=== PATIENT | male | born 1975 | race Caucasian/White ===

== ENCOUNTER 2021-12-27 13:34 | Emergency (ER) | payer BC, SELFPAY ==
[2021-12-27 13:36] VITALS: BP 150/99; PULSE 104; RESP 16; TEMP 36.9; O2SAT 97; BMI 31.8
--- NOTE | 2021-12-27 13:38 | HMH.EDUROGM ---
Discharge Plan Disposition Patient Disposition: Home, Self-Care Condition: Good Prescriptions Prescriptions: New levofloxacin 750 mg tablet 750 mg PO ONCE 10 Days Qty: 10 0RF Referrals Follow up/Referrals: Sotero Fitzpatrick MD [Staff Physician] - See instructions Activity Restrictions/Add. Instructions Additional Instructions/Restrictions: Use tylenol/ibuprofen as needed for discomfort and when sitting you may elevate the scrotum to relieve pain. Take antibiotics as prescribed and follow up with urology for further evaluation if issue is persistent. For any significant worsening, return to the ED for re-evaluation Clinical Impressions Clinical Impression: Epididymitis, left, Orchitis Instructions Patient Instructions: DI for Epididymitis, Levofloxacin, DI for Orchitis Print Language Print Language: Maltese Discharge ED Provider: Scar Ramirez Male Urogenital HPI General Chief complaint: PAIN Stated complaint: pain in L testicle Time Seen by Provider: 12/27/21 13:38 Mode of Arrival: Ambulatory Source of Information: Patient Limitations: No Limitations History of Present Illness HPI Narrative: This is a 46-year-old male, no significant past medical history who presents with chief complaint of pain in the left testicle for 2 days now, denies any known trauma or other injury. He denies any associated dysuria, discharge, inguinal lymphadenopathy. He has been taking ibuprofen without significant relief. He does report redness and mild swelling in the left testicle. Denies dysuria, fever, chills, nausea, vomiting or any other symptoms at this time Related Data Sexually active: Yes Previous Rx's Medication Instructions Recorded levofloxacin 750 mg tablet 750 mg PO ONCE 10 days #10 tabs 12/27/21 Allergies Allergy/AdvReac Type Severity Reaction Status Date / Time No Known Allergies Allergy Verified 12/27/21 14:14 [facility] Social History Smoking Status: Never smoker alcohol intake: never current occupational status: employed Travel in the last 8 weeks: None ROS Obtained: Yes Systems reviewed as appropriate & no additional complaints except as documented Constitutional Constitutional: Reports system reviewed and no additional complaints, except as documented Eyes Eyes: Reports system reviewed and no additional complaints, except as documented ENT Ears, Nose, Mouth, and Throat: Reports system reviewed and no additional complaints, except as documented Cardiovascular Cardiovascular: Reports system reviewed and no additional complaints, except as documented Respiratory Respiratory: Reports system reviewed and no additional complaints, except as documented Gastrointestinal Gastrointestingal: Reports system reviewed and no additional complaints, except as documented Genitourinary Male Genitourinary: Reports testicular pain Musculoskeletal Musculoskeletal: Reports system reviewed and no additional complaints, except as documented Integumentary/Breasts Skin/Breast: Reports system reviewed and no additional complaints, except as documented Neurologic Neurologic: Reports system reviewed and no additional complaints, except as documented Physical Exam General General appearance: alert and in no apparent distress Head Head exam: atraumatic, normocephalic and normal inspection Eye Eye exam: Present normal appearance, PERRL and EOMI ENT ENT exam: Present normal exam, normal oropharynx, mucous membranes moist, TM's normal bilaterally and normal external ear exam Neck Neck exam: Present normal inspection, full ROM and trachea midline; Absent meningismus or lymphadenopathy Chest Chest inspection: Present normal inspection and symmetric chest wall rise; Absent tenderness Respiratory Respiratory exam: Present normal lung sounds bilaterally; Absent respiratory distress Cardiovascular Cardiovascular exam: Present regular rate and normal rhythm; Absent
[2021-12-27 14:04] LABS: Microscopic, Urine URINE MICROSCOPIC (MICROSCOPIC)
[2021-12-27 14:13] LABS: Appearance,Urine CLEAR (Clear); Blood, Urine Negative (Negative); Glucose,Urine (UA) Negative (Negative); Ketones,Urine Negative (Negative); Leukocyte Esterase,Urine Negative (Negative); Nitrate,Urine Negative (Negative); Protein,Urine Negative (Negative); Specific Gravity, Urine 1.025 (1.005-1.030)
[2021-12-27 14:26] LABS: Bilirubin,Urine 1+ (Negative); Color,Urine Amber (Yellow)
[2021-12-27 14:28] LABS: Bacteria,Urine 2+ /lpf; Squamous Epithelial Cell,Urine Occasional #/hpf (0-5)
[2021-12-27 14:29] LABS: Mucus,Urine 4+ /lpf; RBC,Urine Occasional #/hpf (0-3)
[2021-12-27 14:30] VITALS: BP 148/89; PULSE 100; RESP 18; TEMP 36.9; O2SAT 98
== END 2021-12-27 14:30 | disposition home or self-care (01) ==
PROVIDERS: Emergency Provider Emergency Medicine
DX: N45.1 Epididymitis (principal); N45.2 Orchitis; B97.89 Other viral agents as the cause of diseases classified elsewhere
CPT/HCPCS: 81001; 87086; 96372; 99283; J0696

== ENCOUNTER 2023-12-02 10:58 | Outpatient (CLI) | payer BC, SELFPAY ==
[2023-12-02 19:27] LABS: Basophils # 0.1 K/mm3 (0-0.2); Basophils % 0.6 % (0.1-2.0); Eosinophils # 0.1 K/mm3 (0.0-0.4); Hematocrit 50.1 % (42.0-52.0); Hemoglobin 15.9 g/dL (14.1-18.0); Lymphocytes # 2.4 K/mm3 (0.7-4.5); Lymphocytes % 21.1 % (10-50); Mean Corpuscular HGB Conc 31.7 g/dL (31.8-35.4); Mean Corpuscular Hemoglobin 30.3 pg (27.0-31.2); Mean Corpuscular Volume 95.5 fl (80-94); Mean Platelet Volume 10.4 fl (7.4-10.4); Monocytes # 0.5 K/mm3 (0.1-1.0); Monocytes % 4.3 % (1.7-9.3); Neutrophils # 8.4 K/mm3 (1.8-7.8); Platelet Count 183 K/mm3 (142-424); Red Blood Count 5.25 M/mm3 (4.60-6.20); Red Cell Distribution Width 13.3 % (11.5-17.5); White Blood Count 11.5 K/mm3 (4.8-10.8)
[2023-12-02 20:05] LABS: Alanine Aminotransferase 37 U/L (12-78); Albumin Level 4.1 g/dl (3.5-5.0); Albumin/Globulin Ratio 1.2 (1.1-1.8); Alkaline Phosphatase 76 U/L (38-126); Anion Gap 11.3 mEq/L (5-15); Aspartate Amino Transferase 37 U/L (17-59); Bilirubin,Total 0.5 mg/dl (0.2-1.3); Blood Urea Nitrogen 14 mg/dl (9-20); Calcium 9.3 mg/dl (8.4-10.2); Carbon Dioxide 23 mmol/L (22.0-30.0); Chloride 109 mmol/L (98-107); Chol/HDL Ratio 10.3 (1-3.5); Cholesterol 238 mg/dl (140-200); Estimated Glomerular Filt Rate 80 ml/min (>60); GFR (African American) 97 ML/MIN (>60); Globulin 3.4 g/dL (1.3-3.2); Glucose 95 mg/dl (74-100); HDL Cholesterol 23 mg/dl (40-60); Potassium 4.3 mmoL/L (3.5-5.1); Sodium 139 mmol/L (136-145); Total Protein,Serum 7.5 g/dl (6.3-8.2); Triglycerides 209 mg/dl (30-150); VLDL Cholesterol 42 mg/dL (0-40)
[2023-12-02 20:16] LABS: Direct LDL Cholesterol 158.69 mg/dL (100-129)
[2023-12-02 20:25] LABS: 25-OH Vitamin D, Total 26.1 ng/mL (30-100)
[2023-12-02 20:36] LABS: Prostate Specific Ag Screen 0.6 ng/ml (0.0-4.0)
[2023-12-02 20:40] LABS: Hemoglobin A1C 5.4 % (4.0-6.0)
[2023-12-03 11:47] LABS: HIV (1&2) Antibody Rapid NONREACTIVE (NONREACTIVE)
[2023-12-06 20:08] LABS: HCV Ab Reactive (Non Reactive)
== END 2023-12-02 23:59 | disposition home or self-care (01) ==
LOC: LAB.DROPOF 12-03 10:59
PROVIDERS: PCP Family Medicine; Visit Provider Family Medicine
DX: I10 Essential (primary) hypertension (principal); Z11.59 Encounter for screening for other viral diseases; Z91.89 Other specified personal risk factors, not elsewhere classified; M54.50 Low back pain, unspecified; K21.9 Gastro-esophageal reflux disease without esophagitis; Z82.49 Family history of ischemic heart disease and other diseases of the circulatory system
CPT/HCPCS: 80050; 80053; 80061; 82306; 83036; 84443; 85025; G0103

== ENCOUNTER 2023-12-09 10:57 | Outpatient (CLI) | payer BC, SELFPAY ==
--- NOTE | 2023-12-09 11:01 | XR_ITS ---
FINAL REPORT CLINICAL HISTORY: Rt Humerus Pain FINDINGS: Right humerus Four views were obtained. There is no acute fracture or dislocation. There are mild degenerative changes of the shoulders. No soft tissue abnormality is identified. IMPRESSION: No acute process. Reviewed, Interpreted and Dictated by Enoc Torres III, MD Transcribed by Danette Polanco Authenticated and [facility]
== END 2023-12-09 23:59 | disposition home or self-care (01) ==
LOC: RAD 10:58
PROVIDERS: PCP Family Medicine; Visit Provider Orthopaedic Surgery
DX: M79.601 Pain in right arm (principal); S46.211A Strain of muscle, fascia and tendon of other parts of biceps, right arm, initial encounter
CPT/HCPCS: 73060

== ENCOUNTER 2023-12-14 09:44 | Outpatient (CLI) | payer BC, SELFPAY ==
[2023-12-14 10:11] LABS: Basophils # 0.1 K/mm3 (0-0.2); Basophils % 0.7 % (0.1-2.0); Eosinophils # 0.2 K/mm3 (0.0-0.4); Hematocrit 48.2 % (42.0-52.0); Lymphocytes # 2.2 K/mm3 (0.7-4.5); Lymphocytes % 21.9 % (10-50); Mean Corpuscular HGB Conc 31.2 g/dL (31.8-35.4); Mean Corpuscular Hemoglobin 29.8 pg (27.0-31.2); Mean Corpuscular Volume 95.4 fl (80-94); Mean Platelet Volume 8.3 fl (7.4-10.4); Monocytes # 0.5 K/mm3 (0.1-1.0); Monocytes % 4.6 % (1.7-9.3); Neutrophils % 70.7 % (37.0-80.0); Platelet Count 176 K/mm3 (142-424); Red Blood Count 5.05 M/mm3 (4.60-6.20); Red Cell Distribution Width 13.4 % (11.5-17.5); White Blood Count 9.9 K/mm3 (4.8-10.8)
[2023-12-14 11:02] LABS: INR 0.93 (0.9-1.1); Prothrombin Time 10.5 seconds (10.1-12.5)
[2023-12-14 11:08] LABS: Alanine Aminotransferase 37 U/L (12-78); Albumin Level 3.7 g/dl (3.5-5.0); Albumin/Globulin Ratio 1.2 (1.1-1.8); Alkaline Phosphatase 65 U/L (38-126); Anion Gap 5.6 mEq/L (5-15); Aspartate Amino Transferase 37 U/L (17-59); Bilirubin,Total 0.5 mg/dl (0.2-1.3); Blood Urea Nitrogen 13 mg/dl (9-20); Calcium 9.3 mg/dl (8.4-10.2); Carbon Dioxide 25 mmol/L (22.0-30.0); Chloride 112 mmol/L (98-107); Estimated Glomerular Filt Rate 80 ml/min (>60); GFR (African American) 97 ML/MIN (>60); Globulin 3.2 g/dL (1.3-3.2); Glucose 79 mg/dl (74-100); Potassium 4.6 mmoL/L (3.5-5.1); Sodium 138 mmol/L (136-145); Total Protein,Serum 6.9 g/dl (6.3-8.2)
[2023-12-14 14:40] LABS: HIV (1&2) Antibody Rapid NONREACTIVE (NONREACTIVE)
[2023-12-15 10:13] LABS: Hep A Ab, Total Positive (Negative); Hep B Core Ab, Total Positive (Negative); Hep B Surface Ab, Qual Reactive (.); Hepatitis B Surface Antigen Negative (Negative)
[2023-12-16 23:08] LABS: HCV Genotype Charge YES; HCV RNA (International Units) 11800000 IU/mL (.); Hepatitis C Genotype 2b (.)
[2023-12-22 09:53] LABS: Fibrosis Score 0.24; Fibrosis Stage F0-F1; Hepatitis C Antibody REACTIVE
[2023-12-22 09:54] LABS: Alpha 2-Macroglobulins, Qn 311 mg/dL; Haptoglobin 156 mg/dL; Necroinflammat Activity Score 0.15
[2023-12-22 09:55] LABS: ALT (SGPT) P5P 33 IU/L; Apolipoprotein A-1 93 mg/dL; Bilirubin, Total 0.1 mg/dL; GGT 28 IU/L
== END 2023-12-14 23:59 | disposition home or self-care (01) ==
LOC: LAB 09:45
PROVIDERS: PCP Nurse Practitioner Family; Visit Provider Nurse Practitioner Family
DX: B19.20 Unspecified viral hepatitis C without hepatic coma (principal)
CPT/HCPCS: 36415; 80053; 81596; 85025; 85610; 86704; 86706; 86708; 87340; 87380; 87522; 87902

== ENCOUNTER 2024-02-14 16:10 | Outpatient (CLI) | payer BC, SELFPAY ==
--- NOTE | 2024-02-14 16:11 | MR_ITS ---
PROCEDURE INFORMATION: Exam: MR Cervical Spine Without Contrast Exam date and time: 02/14/2024 4:18 PM Age: 48 years old Clinical indication: Neck pain; Additional info: Cervical radiculopathy TECHNIQUE: Imaging protocol: Magnetic resonance imaging of the cervical spine without contrast. COMPARISON: CR XR HUMERUS RT 12/09/2023 11:11 AM FINDINGS: Bones/joints: The vertebral body heights and alignment are maintained. There is [id number] multilevel degenerative disc disease. Spinal cord: Normal signal. No cord compression. C2-C3: No significant disc bulge or herniation. No severe spinal canal stenosis. No significant neural foraminal narrowing. C3-C4: There is mild diffuse disc osteophyte bulging which partially effaces the anterior thecal sac. There is no significant spinal canal stenosis. The right neural foramen appears patent. There is [id number] left neural foraminal stenosis secondary to foraminal disc osteophyte ridging and facet hypertrophy. C4-C5: There is mild diffuse disc osteophyte bulging which partially effaces the anterior thecal sac. There is no significant spinal canal stenosis. The right neural foramen appears patent. There is moderate left neural foraminal stenosis secondary to foraminal disc osteophyte bulging and facet hypertrophy. C5-C6: There is mild spinal canal stenosis secondary to diffuse disc osteophyte bulging which effaces the anterior thecal sac. The left neural foramen appears patent. There is [id number] right neural foraminal stenosis secondary to a foraminal disc osteophyte complex and facet hypertrophy. C6-C7: There is diffuse disc osteophyte bulging which partially effaces the anterior thecal sac. There is no significant spinal canal stenosis. The left neural foramen appears patent. There is severe right neural foraminal stenosis secondary to a foraminal disc osteophyte complex. C7-T1: No significant disc bulge or herniation. No severe spinal canal stenosis. No significant neural foraminal narrowing. Soft tissues: Unremarkable. Vasculature: Expected flow voids in the vertebral arteries. IMPRESSION: Degenerative changes as described. Please see above for specific findings at each level.
== END 2024-02-14 23:59 | disposition home or self-care (01) ==
LOC: RAD 16:11
PROVIDERS: PCP Nurse Practitioner Family; Visit Provider Physician Assistant
DX: M47.22 Other spondylosis with radiculopathy, cervical region (principal)
CPT/HCPCS: 72141

== ENCOUNTER 2024-03-03 15:12 | Outpatient (CLI) | payer BC, SELFPAY ==
--- NOTE | 2024-03-03 15:13 | MR_ITS ---
PROCEDURE INFORMATION: Exam: MR Right Upper Extremity Joint Without Contrast; Shoulder Exam date and time: 03/03/2024 3:17 PM Age: 48 years old Clinical indication: Pain; Shoulder; Right; Additional info: Attention to musculocutaneous TECHNIQUE: Imaging protocol: Magnetic resonance imaging of the right upper extremity without contrast. Exam focused on the shoulder. COMPARISON: CR XR HUMERUS RT 12/09/2023 11:11 AM FINDINGS: Bones/joints: There is limited subchondral cystic change humeral head superiorly and laterally without fracture or suspicious marrow signal. Mild osteoarthritis acromioclavicular joint. Minimal reactive marrow edema on either side of the articulation. Good preservation of articular cartilage glenohumeral joint. Glenoid labrum: Unremarkable. No evidence of tear. Supraspinatus tendon: Minimal tendinopathy distal supraspinatus tendon. The rotator cuff is intact. Infraspinatus tendon: Unremarkable. No evidence of tear. Subscapularis tendon: Unremarkable. No evidence of tear. Teres minor tendon: Unremarkable. No evidence of tear. Tendon of biceps brachii: Unremarkable. No evidence of tear. Glenohumeral ligaments: Unremarkable. Soft tissues: Unremarkable. Other findings: Otherwise unremarkable. IMPRESSION: 1. There is limited degenerative subchondral cystic change humeral head superiorly and laterally without fracture or suspicious marrow signal. 2. Minimal tendinopathy distal supraspinatus tendon. The rotator cuff is intact. 3. Mild osteoarthritis acromioclavicular joint. Minimal reactive marrow edema on either side of the articulation. 4. Otherwise unremarkable.
--- NOTE | 2024-03-03 15:13 | MR_ITS ---
PROCEDURE INFORMATION: Exam: MR Right Upper Extremity Other Than Joint Without Contrast, Humerus. Exam date and time: 03/03/2024 3:55 PM Age: 48 years old Clinical indication: Pain; Additional info: Parathesis of upper right extremity TECHNIQUE: Imaging protocol: Magnetic resonance imaging of the right upper extremity other than joint without contrast. Exam focused on the humerus. COMPARISON: CR XR HUMERUS RT 12/09/2023 11:11 AM FINDINGS: Bones/joints: Detailed intra-articular structures shoulder and elbow are limited by the large field of view utilized for whole upper arm study. There is additional limitation by motion artifact on several sequences. Mild osteoarthritis glenohumeral joint. No suly rotator cuff tear. Detail of the labrum is quite limited. Soft tissues: There is mild edematous signal change in the muscle belly of the biceps brachii in the upper arm. There is some thickened irregular appearance to the musculotendinous junction, without significant edema along the remaining course of the tendon. The distal most insertion is not well visualized. This would be better visualized on the dedicated MRI of the elbow. Findings may represent a remote injury to the distal biceps tendon. IMPRESSION: 1. There is mild edematous signal change in the muscle belly of the biceps brachii in the upper arm. There is some thickened irregular appearance to the musculotendinous junction at this level, without significant edema along the remaining course of the tendon. The distal most insertion is not well visualized. This would be better visualized on the dedicated MRI of the elbow. Findings may represent a remote injury to the distal biceps tendon. 2. Mild osteoarthritis glenohumeral joint. No suly rotator cuff tear. Detail of the labrum is quite limited.
== END 2024-03-03 23:59 | disposition home or self-care (01) ==
LOC: RAD 15:13
PROVIDERS: PCP Nurse Practitioner Family; Visit Provider Physician Assistant
DX: R20.2 Paresthesia of skin (principal); G56.91 Unspecified mononeuropathy of right upper limb
CPT/HCPCS: 73218; 73221

== ENCOUNTER 2024-05-05 10:51 | Emergency (ER) | payer OTHER, SELFPAY ==
--- NOTE | 2024-05-05 11:06 | ED_ITS ---
Discharge Plan Disposition Patient Disposition: Home, Self-Care Condition: Good Prescriptions Prescriptions: New sulfamethoxazole-trimethoprim [Bactrim DS] 800-160 mg Tablet 1 tab PO BID 10 Days Qty: 20 0RF cephalexin 500 mg capsule 500 mg PO QID 10 Days Qty: 40 0RF mupirocin 2 % ointment 1 applic topical TID 7 Days Qty: 15 0RF No Action cetirizine [Wal-Zyr (cetirizine)] 10 mg tablet 10 mg PO DAILY PRN (Reason: allergy symptoms) Qty: 30 3RF omeprazole 40 mg capsule,delayed release(DR/EC) 40 mg PO DAILY Qty: 30 2RF atorvastatin [Lipitor] 10 mg tablet 10 mg PO HS Qty: 30 2RF Referrals Follow up/Referrals: Khanh Zimmer APRN [Primary Care Provider] - See instructions Activity Restrictions/Add. Instructions Additional Instructions/Restrictions: Keep the affected area clean and dry. Follow up with your regular doctor. Take the antibiotics as directed and apply the topical antibiotics as directed. Apply warm wet compresses to the affected area three or four times per day. GO TO THE ER FOR ANY WORSENING SYMPTOMS We are culturing the drainage from your wound. That will tell what bacteria is causing your infection and which antibiotics will treat it best.This test takes 3 days to complete. Please make sure you follow up to go over the culture report and to have the wound rechecked. Clinical Impressions Clinical Impression: Cutaneous abscess of left hand, Cellulitis of left hand Instructions Patient Instructions: Cellulitis, DI for Skin Abscess Print Language Print Language: Mongolian Discharge ED Provider: Billy Pedraza [facility] General Stated complaint: infection on L hand Time Seen by Provider: 05/05/24 11:06 History of Present Illness Provider Complaint: He states that for the past 1 week he has had a worsening red swollen area on the back of his left hand. He states that the area has redness surrounding it and the wound has had tannish drainage. He denies any fever/chills/malaise. He denies that he is a diabetic. Related Data Previous Rx's ?Medication ?Instructions ?Recorded cetirizine 10 mg tablet (Wal-Zyr 10 mg PO DAILY PRN allergy 12/14/23 (cetirizine)) symptoms #30 tabs omeprazole 40 mg capsule,delayed 40 mg PO DAILY #30 caps 03/15/24 release atorvastatin 10 mg tablet (Lipitor) 10 mg PO HS #30 tabs 03/27/24 cephalexin 500 mg capsule 500 mg PO QID 10 days #40 caps 05/05/24 mupirocin 2 % topical ointment 1 applic topical TID 7 days #15 05/05/24 grams sulfamethoxazole 800 1 tab PO BID 10 days #20 tabs 05/05/24 mg-trimethoprim 160 mg tablet (Bactrim DS) Allergies Allergy/AdvReac Type Severity Reaction Status Date / Time No Known Allergies Allergy Verified 02/22/24 11:08 [facility] Disclaimer: The information contained in this section may have been updated after the patient was seen, as this information can be updated by other users. Medical History High cholesterol Hepatitis C Hip pain, bilateral Lower back pain High blood pressure Surgical History No history of previous surgery Family History Father Hypertension Alcoholism Heart attack Mother Hypertension Heart attack COPD (chronic obstructive pulmonary disease) Obesity Social History Smoking Status: Heavy tobacco smoker alcohol intake: current current occupational status: unemployed Travel in the last 8 weeks: None marital status: single number of children: 4 Have you lived/traveled outside US in past 30 days?: No Contact w/someone who lives/traveled outside US past 30 days?: No Exposure to someone with infectious disease in past 14 days?: No Do you have a fever (greater than 100.4 F or 38 C)?: No Have you tested positive for COVID-19: No Exposed to someone with COVID-19 in past 14 days?: No Do you have a sore throat?: No Do you have a cough?: No Do you have any weakness?: No Do you have any diarrhea?: No Are you experiencing any unusual bleeding?: No Do you have any muscle aches/pain?: No Do you have any abdominal pain?: No Are you experiencing loss of taste or smell?: No ROS Obtained: Yes All systems reviewed & no additional complaints except as documented Constitutional Constitutional: Denies chills and Denies fever(s) Eyes Eyes: Denies eye discharge ENT Ears, Nose, Mouth, and Throat: Denies dizziness, Denies otalgia and Denies sore throat Cardiovascular Cardiovascular: Denies chest pain Respiratory Respiratory: Denies shortness of breath, Denies chest congestion, Denies cough, Denies stridor and Denies wheezing Gastrointestinal Gastrointestingal: Denies nausea or vomiting Musculoskeletal Musculoskeletal: Reports system reviewed and no additional complaints, except as documented and Denies arthralgias Integumentary/Breasts Skin/Breast: Reports as per HPI, Reports redness and Reports wounds Neurologic Neurologic: Denies dizziness and Denies paresthesias Allergic/Immunologic Allergic/Immunologic: Denies wheezing Physical Exam General General appearance: alert and in no apparent distress Head Head exam: atraumatic, normocephalic and normal inspection Eye Eye exam: Present normal appearance, PERRL and EOMI ENT ENT exam: Present normal exam, normal oropharynx, mucous membranes moist, TM's normal bilaterally and normal external ear exam Neck Neck exam: Present normal inspection, full ROM and trachea midline; Absent meningismus or lymphadenopathy Chest Chest inspection: Present normal inspection and symmetric chest wall rise; Absent tenderness Respiratory Respiratory exam: Present normal lung sounds bilaterally; Absent respiratory distress Cardiovascular Cardiovascular exam: Present regular rate and normal rhythm; Absent JVD Abdominal Exam Abdominal exam: Present soft and normal bowel sounds; Absent distention, tenderness or guarding Extremities Exam Extremities exam: Present normal inspection, full ROM and normal capillary refill; Absent calf tenderness Back Exam Back exam: Present normal inspection; Absent tenderness Neurological Exam Neurological exam: Present alert and oriented X3 Psychiatric Psychiatric exam: Present normal affect and normal mood Skin Skin exam: Present erythema (there is an area of erythema on the dorsal surface of his left hand that measures 3 cm diameter. there is an open area in its center that has a small amount of tannish drainage. ) Lymphatic Lymphatic Findings: no adenopathy Medical Decision Making Medical Records Medical records reviewed: No I reviewed the patient's medical records. Screening: Per USPSTF and CDC recommendations, given the prevalence of disease in our [place] on, it is our hospital?s policy to screen for HIV and viral Hepatitis for all patients aged 18 and over and those with ongoing risk factors. Jomar Inquiry Pt receiving controlled substance: No
[2024-05-05 11:10] VITALS: BP 157/88; PULSE 69; RESP 18; TEMP 36.9; O2SAT 95; BMI 31.1
[2024-05-05] MEDS: LIDOCAINE 1% 5ML PF VIAL IM (11:26)
[2024-05-05] MEDS: cefTRIAXone 1GM VIAL 1 GM IM (11:26)
[2024-05-05 11:29] VITALS: BP 157/88; PULSE 69; RESP 18; TEMP 36.9; O2SAT 95
--- NOTE | 2024-05-07 18:54 | PC.NURSE ---
UNABLE TO REACH PT ABOUT CULTURE.
--- NOTE | 2024-05-08 10:09 | PC.NURSE ---
Pt called about wound culture, pt was advised that the antibiotics given will cover the infection he has and was told to follow up with pcp for worsening symptoms.
== END 2024-05-05 11:37 | disposition home or self-care (01) ==
PROVIDERS: Emergency Provider Nurse Practitioner Family; PCP Nurse Practitioner Family
DX: L03.114 Cellulitis of left upper limb (principal); L02.512 Cutaneous abscess of left hand
CPT/HCPCS: 87070; 87077; 87186; 87205; 99213; G0381; J0696

== ENCOUNTER 2024-06-12 13:56 | Outpatient (CLI) | payer OTHER, SELFPAY ==
[2024-06-12 19:26] LABS: Chloride 104 mmol/L (98-107); Potassium 4.6 mmoL/L (3.5-5.1); Sodium 139 mmol/L (136-145)
[2024-06-12 19:29] LABS: Alanine Aminotransferase 22 U/L (12-78); Albumin/Globulin Ratio 1.4 (1.1-1.8); Alkaline Phosphatase 106 U/L (38-126); Anion Gap 14.6 mEq/L (5-15); Aspartate Amino Transferase 29 U/L (17-59); Bilirubin,Total 0.7 mg/dl (0.2-1.3); Calcium 9.8 mg/dl (8.4-10.2); Carbon Dioxide 25 mmol/L (22.0-30.0); Cholesterol 218 mg/dl (140-200); Globulin 3.6 g/dL (1.3-3.2); Glucose 86 mg/dl (74-100); Total Protein,Serum 8.6 g/dl (6.3-8.2); Triglycerides 203 mg/dl (30-150); VLDL Cholesterol 41 mg/dL (0-40)
[2024-06-12 19:30] LABS: Chol/HDL Ratio 8.7 (1-3.5); HDL Cholesterol 25 mg/dl (40-60)
[2024-06-12 19:34] LABS: Blood Urea Nitrogen 12 mg/dl (9-20); Estimated Glomerular Filt Rate 80 ml/min (>60); GFR (African American) 97 ML/MIN (>60)
[2024-06-12 19:41] LABS: Direct LDL Cholesterol 144.43 mg/dL (100-129)
== END 2024-06-12 23:59 | disposition home or self-care (01) ==
LOC: LAB.DROPOF 06-13 14:36
PROVIDERS: PCP Family Medicine; Visit Provider Family Medicine
DX: I10 Essential (primary) hypertension (principal); B19.20 Unspecified viral hepatitis C without hepatic coma; K21.9 Gastro-esophageal reflux disease without esophagitis; E78.00 Pure hypercholesterolemia, unspecified
CPT/HCPCS: 80053; 80061; 87522

== ENCOUNTER 2024-08-09 13:44 | Outpatient (CLI) | payer OTHER, SELFPAY ==
--- NOTE | 2024-08-09 13:47 | XR_ITS ---
FINAL REPORT CLINICAL HISTORY: knee pain x6 years FINDINGS: AP, lateral and oblique views of the left knee were obtained. There is no prior exam for comparison. There is no acute osseous abnormality of the left knee. There is mild patellofemoral degenerative disease. The soft tissues are normal. There is no joint effusion. IMPRESSION: Mild degenerative disease of the patellofemoral joint. Reviewed, Interpreted and Dictated by Minnie Montano MD Transcribed by Danette Polanco Authenticated and [facility]
--- NOTE | 2024-08-09 13:47 | XR_ITS ---
FINAL REPORT CLINICAL HISTORY: knee instab x1 year FINDINGS: AP, lateral and oblique views of the right knee were obtained. There is no prior exam for comparison. There is no acute osseous abnormality of the right knee. There is early patellofemoral joint degenerative disease. The soft tissues are normal. There is no joint effusion. IMPRESSION: Early patellofemoral joint degenerative disease. Reviewed, Interpreted and Dictated by Minnie Montano MD Transcribed by Danette Polanco Authenticated and [facility]
--- NOTE | 2024-08-09 13:47 | XR_ITS ---
FINAL REPORT CLINICAL HISTORY: pain; low back pain FINDINGS: AP and lateral views of the lumbar spine were obtained. There is no prior exam for comparison. There is no acute fracture or malalignment. Vertebral body height is preserved. There is mild multilevel degenerative disc disease, most pronounced at L1-2. No acute paraspinal abnormality. IMPRESSION: Multilevel degenerative disc disease. Reviewed, Interpreted and Dictated by Minnie Montano MD Transcribed by Danette Polanco Authenticated and [facility]
--- OUTSIDE RECORDS SUMMARY | 2024-08-09 13:47 | XMS_ITS | Clinical Summary ---
Author Organization 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 Name Role Phone Arcadio WASHBURN, Miugelito Wilson Unavailable [phone] Reason for Visit and Chief Complaint Physician Specified Problems Includes: Problems addressed during this encounter and other active Problems All Visits Onset Date Resolved Date Provider Condition S tatus Neck Pain 05/23/2024 Satya Saldaña PA-C Active Last Documented On 3:08PM ; [facility]NE[facility], [facility] Plan of Treatment No Plan of Treatment Recorded Assessments Includes: Assessments from this encounter No Assessments Recorded Medical Equipment - Implanted Devices Includes: Current Devices No Medical Equipment Recorded Medications Includes: Medications discussed during this encounter and other current Medications Current Medications (continue as prescribed) Famotidine 20 MG Oral Tablet 05/17/2024 Provider: Diagnosis: Last Documented On 5 3:09PM By Doug Blair ; [facility], [facility] Cephalexin 500 MG Oral Capsule 05/05/2024 Provider: Diagnosis: Last Documented On 5 3:09PM By Doug Blair ; [facility], [facility] Mupirocin 2% External Ointment 05/05/2024 Provider: Diagnosis: Last Documented On 5 3:09PM By Doug Blair ; [facility], [facility] Sulfamethoxazole-Trimethoprim 800-160 MG Oral Tablet 0 05/05/2024 Provider: Diagnosis: Last Documented On 5 3:09PM By Doug Blair ; [facility], [facility] Lidocaine 5% External Patch 04/03/2024 Provider: Diagnosis: Last Documented On 5 3:09PM By Doug Blair ; [facility], [facility] Methocarbamol 500 MG Oral Tablet 04/03/2024 Provider : Diagnosis: Last Documented On 5 3:09PM By Doug Wang [facility], [facility] Atorvastatin Calcium 10 MG Oral Tablet 03/28/2024 Pr ovider: Khanh Zimmer APRN Diagnosis: Last Documented On 5 3:09PM By Doug Blair ; [facility], [facility] Omeprazole 40 MG Oral Capsule Delayed Release 03/15/20 Provider: Diagnosis: Last Documented On 5 3:09PM By Doug Blair ; [facility], [facility] Medications Administered Includes: Administered Medications from this encounter No Administered Medications Recorded Results Includes: Results discussed during this encounter No Results Recorded For Specified Dates History of Present Illness Includes: History of Present Illness from this encounter SUSAN Fam is a 48 year old male. - Allergy list reviewed - Problem list reviewed - Medication list reviewed Patient is seen today for initial visit regarding his right distal biceps tendon rupture. He states this occurred roughly 2 years ago. He states recently he has had cramping and pain in the axillary of the right shoulder be has pain going down his right arm. He has weakness in the right arm. He has had MRIs of both this shoulder and C-spine. There has been no imaging of his elbow. He reports an obvious deformity of the biceps. Review of systems Right distal biceps tendon tear Physical exam Patient is awake and alert. Well groomed and nourished. No acute distress. Normal gait and station. Appropriate mood and affect. patient shows full motion without pain. Normal strength. No instability. No skin changes. No bony deformities or joint effusion. Normal sensation +2 radial pulse There is an obvious deformity of the biceps with proximal retraction positive hook test where the can not palpate the distal biceps. Positive hand financial recruiter bilaterally with the left being significantly stronger than the right sensation light touch is intact with that is being a bit diminished on the right when compared to the left Imaging MRI of the right shoulder shows mild tendinopathy with no acute findings MRI of the cervical spine shows degenerative disc disease at C5-6 and C6-7 Assessment Right distal biceps tendon tear, chronic Cervical radiculopathy on the right Plan Physical exam findings imaging results were discussed with the patient. Based on these findings we will refer him to our spine service further evaluation of the cervical radiculopathy. He will follow up with us on an as-needed basis Social History No Social History Recorded - Smoking Status Unknown Medical History Includes: Medical History addressed during this encounter No Medical History Recorded Family History Includes: Family History addressed during this encounter No Family History Recorded Review of Systems Includes: Review of Systems from this encounter No Review of Systems Recorded Mental Status Includes: Mental Status from this encounter No Mental Status Recorded Functional Status Includes: Functional Status from this encounter No Functional Status Recorded Physical Exam Includes: Physical Exam from this encounter No Physical Exam Recorded Encounters Encounter Provider Location Date Check-In Time Check-Out Time Diagnosis Physician Specified Satya Heller PA-C [facility] 05/12/19 25 9:59AM 11:04AM Insurance Includes: Active Insurance Policies Plan Name Member ID Group # Subscriber Relationship Effect rae Dates 1 - [facility] Community Plan [id number] Enoc Romero 04/26/2024 - Unknown Clinical Notes Includes: Clinical Notes from this encounter No Clinical Notes Recorded
--- OUTSIDE RECORDS SUMMARY | 2024-08-09 13:47 | XMS_ITS | Data Portability ---
Author Organization [facility] and [facility] Address [address] [place] [address] Care Team Providers Care Family Preservation Worker Name Role Phone OLIVA BLUM Off Track Betting Manager [phone] Assessment No assessment recorded. Plan of Treatment Reminders Order Date Submit Date Provider Last Modified By Organization Details Last Modified Time Details Appointments None recorded. Lab None recorded. Referral None recorded. Procedures upper endoscopy procedure (EGD) (PROC) 2023 024 bill Springer MD, [address] [place], [address], 4 10:36:49 colonoscop y procedure (PROC) 2023 024 bill Springer MD, [address], [address], 4 10:36:49 upper endoscopy procedure (EGD) (PROC) 2023 024 bill Springer MD, [address] [place], [address], 4 10:36:49 upper endoscopy procedure (EGD) (PROC) 2022 023 syl Springer MD, [address] [place], [address], 3 13:52:55 colonoscop y procedure (PROC) 2022 023 syl Springer MD, [address], [address], [place], [address], 3 13:52:56 upper endoscopy procedure (EGD) (PROC) 2022 023 [email or web address] John Paul Springer MD, [address], [address], [place], [address], 3 13:52:55 Surgeries None recorded. Imaging None recorded. Medication Orders Miralax 17 gram/dose oral powder 2023 024 [id number], [address], [place], [place], [id number], 4 11:14:48 Dulcolax (bisacodyl ) 5 mg tablet,del ayed release 2023 024 [email or web address] [facility], [address], [place], [place], [id number], 4 11:14:48 pantoprazo le 40 mg tablet,del ayed release 2022 023 [email or web address] [facility], [address], [place], [place], [phone], 3 12:44:12 Patient TargetsNo targets recorded. Patient InstructionsNo instructions recorded. Reason for Referral None Reported. Results Created Date Observation Date Name Description Value Unit Range Abnormal Flag Note LastModifiedBy Organization Detail LastModifiedTime Result Notes None recorded. Problems Name Problem SNOMED Code Status Onset Date Resolution Date Notes Provider Name and Address Organization Details Recorded Time Esophageal dysphagia 00422789 Active 2022 Oliva Blum NP [address], [address], [facility], [address], [facility] & [place] 3 15:28:03 Gastro-esopha geal reflux disease with esophagitis 241569511 Active 2022 Oliva Blum NP [address], [address], [place], [address], [facility] & [place] 3 15:28:03 Upper abdominal pain 04064340 Active 2022 Oliva Blum NP [address], [address], [place], [address], [facility] & [place] 3 15:28:20 Problem Notes None recorded. Procedures Surgical History Date Name Laterality Status Provider Name and Address Organization Details Recorded Time 4 Colonoscopy completed Ana Paula Moralez [facility] & [place] 01/28/2024 10:24:51 Imaging Results None recorded. Procedure Notes None recorded. Medical Equipment None Reported. Allergies No known drug allergies Medications Name Sig Start Date Stop Date Status Note LastModified by Organization Details LastModified Time cetirizine 10 mg tablet TAKE 1 TABLET BY MOUTH DAILY NEEDED FOR ALLERGY SYMPTOMS active Not Available Not Available No t Available atorvastatin 10 mg tablet TAKE 1 TABLET BY MOUTH EVERY NIGHT AT BEDTIME active Not Available Not Available No t Available omeprazole 40 mg capsule,delaye d release TAKE 1 CAPSULE BY MOUTH DAILY active Not Available Not Available No t Available pantoprazole 40 mg tablet,delayed release TAKE 1 TABLET BY MOUTH EVERY DAY 2023 active Not Available Not Available Not Avai lable bisacodyl 5 mg tablet,delayed release TAKE 2 TABLETS BY MOUTH FOR 1 DAY DIRECTED active Not Available Not Available No t Available polyethylene glycol 3350 17 gram/dose oral powder Take 17 g by oral route for 2 days. active Not Available Not Available No t Available fluticasone propionate 50 mcg/actuation nasal spray,suspensi on SHAKE LIQUID AND USE 1 SPRAY IN EACH NOSTRIL DAILY active Not Available Not Available No t Available sofosbuvir 400 mg-velpatasvir 100 mg tablet TAKE ONE TABLET BY MOUTH EVERY DAY active Not Available Not Available No t Available Vitals Date Recorded Body height Body mass index (BMI) Body weight Body temperature Oxygen saturation Oxygen saturation in Arterial blood by Pulse oximetry Heart rate Provider Name and Address Organization Details Last Updated DateTime 3 180.34 cm 32.9 kg/m2 331841. 8 g 97 [degF] 98 % 98 % 76 /min Autumn Diaz [facility] & [place] 3 14:52:02 Date Recorded Body height Body mass index (BMI) Body weight Body temperature Oxygen saturation Oxygen saturation in Arterial blood by Pulse oximetry Heart rate Provider Name and Address Organization Details Last Updated DateTime 4 182.88 cm 31.3 kg/m2 022608. 84 g 97.4 [degF] 97 % 97 % 89 /min Pamela Rico [facility] & [place] 4 09:52:41 Social History Question Answer Notes LastModified by Organizat ion Details LastModified Time Tobacco Smoking Status Current Every Day Smoker Autumn Diaz [facility] [place] [facility] & [place] 03/31/2023 14:55:47 What Is Your Level Of Alcohol Consumption? None [email or web address] Information not available 03/31/2023 How Much Tobacco Do You Smoke? 1 PPD Information not available 03/31/2023 Do You Use Any Illicit Or Recreational Drugs? No [email or web address] Information not available 03/31/2023 Sex: Unknown Functional Status None recorded. Mental Status None recorded. Family History Relationship Description Onset Age of this Age Resolved Age Notes LastModified by Organization Details LastModified Time Father Hypertensive disorder [email or web address] Not available 03/31 14:53:25 Father Cerebrovascu lar accident [email or web address] Not available 14:55:21 Father Chronic obstructive pulmonary disease [email or web address] Not available 03/31 14:56:21 Mother Hypertensive disorder [email or web address] Not available 03/31 14:53:25 Mother Cerebrovascu lar accident [email or web address] Not available 14:55:21 Unspecified Relation Family history of Stomach cancer cousin tyler Not available 2022 15:09:17 Medical History Condition Response Anxiety Disorder Y GERD/Reflux Y Past Encounters Encounter ID Performer Location Encounter Start Date Encounter Closed Date Diagnosis/Indication Diagnosis SNOMED-CT Code Diagnosis ICD10 Code Diagnosis Note [id number] Oliva Blum NP [facility] [address] [place] [phone] 03/31/2023 14:37:45 04/01/2023 13:58:00 Esophageal dysphagia 71037573 R13.19 episodes of dysphagia of solids and liquids with regurgitat ion. Plan for EGD to evaluate for esophageal stricture, ring, esophagiti s, other.Pt is scheduled for EGD/Colon 04/07 @ 8:15 AM Gastro-eso phageal reflux disease with esophagitis 122897021 K21.00 Uncontroll ed symptoms with use of OTC omeprazole . Previously failed treatment with ranitidine . Recommend pantoprazo le 40 mg p.o. daily. Recommend smoking cessation as well as continued decrease caffeine intake. Recommend EGD to evaluate for esophagiti s, hiatal hernia, other. Family his tory of Stomach cancer 962685225 Z80.0 Patient's cousin with history stomach cancer. Screening for malignant neoplasm of colon 296808657 Z12.11 Recommend screening colonoscop y to rule out colorectal cancer, polyps, other. Upper abdominal pain 831 88302 R10.10 episodes of upper abdominal pain with some associated nausea. Comes and goes. Plan for EGD to evaluate for H pylori gastritis, PUD, other. [id number] Oliva Blum NP [facility] [address] [place] [phone] 11/03/2023 09:34:50 11/03/2023 12:27:41 Esophageal dysphagia 76338342 R13.19 episodes of dysphagia of solids and liquids with regurgitat ion. Plan for EGD to evaluate for esophageal stricture, ring, esophagiti s, other. Gastro-eso phageal reflux disease with esophagitis 538762379 K21.00 Frequent uncontroll ed symptoms currently treated with OTC tums. Failed treatment with Pantoprazo le and Omeprazole in the past. Recommend smoking cessation as well as decreased caffeine intake. Recommend EGD to evaluate for esophagiti s, hiatal hernia, other. Family his tory of Stomach cancer 170637309 Z80.0 Patient's cousin with history stomach cancer. Screening for malignant neoplasm of colon 531814997 Z12.11 Recommend screening colonoscop y to rule out colorectal cancer, polyps, other. No prior colonoscop y. Colonoscopy planned 0246 98012 Z76.89 Health Concerns Section Related Observation LastModified by Organization Detai ls LastModified Time None Recorded Concern Status LastModified by Organization Details LastModified Time None Recorded Advance Directives Directive None Recorded Payers Encounter Date Sequence Insurance Name Policy Number Policy Proctor Covered Member ID Proctor Member ID Guarantor Name 03/31/2023 1 [place] [place] [facility] [id number] [place] Fam [id number] Enoc Fam 11/03/2023 1 [place] [id number] Starkey [id number] [facility] Notes Date Note Type Note Provider Name and Address Organization Details Recorded Time 03/31/2023 text/html 47-year-old male with past medical history GERD. Reports ongoing symptoms for many years. He is currently taking OTC omeprazole for treatment of GERD. Failed treatment with ranitidine in the past. Experiencing daily uncontrolled symptoms at this time as well as esophageal dysphagia to both solids and liquids. He does regurgitate. He does smoke 1 pack per day and has recently decreased caffeine intake. Occasional episodes of nausea as well as left-sided abdominal pain. Reports daily bowel movements without melena. No prior colonoscopy. Cousin with history of gastric cancer. Oliva Blum NP [address], [address], [place], [address], [facility] & [place] 03/31/2023 15:29:03 11/03/2023 text/html Patient returns to clinic today after being lost to follow-up. He continues to experience frequent uncontrolled GERD symptoms which she currently treats with OTC Tums. Previously prescribed pantoprazole however reports increased gas and bloating with use. Continues to report episodes of dysphagia to solids and liquids. Describes numbness in his upper abdomen. Previously scheduled for both EGD /colonoscopy 03/2023 however did not keep that appointment. No prior colonoscopy. Cousin with history of gastric cancer. Oliva Blum NP [address], [address], [place], [address], [facility] & [place] 11/03/2023 12:19:42
--- OUTSIDE RECORDS SUMMARY | 2024-08-09 13:47 | XMS_ITS ---
Author Organization [facility] Address [address] [place] [address] Phone Care Team Providers Care Filler Shaker Name Role Phone Arcadio WASHBURN, Miguelito Wilson Unavailable [phone] Problems Includes: Active, inactive, and resolved Problems All Visits Onset Date Resolved Date Provider Condition S tatus Neck Pain 05/23/2024 Satya Saldaña PA-C Active Last Documented On 5 3:08PM ; [facility], [facility] Plan of Treatment No Plan of Treatment Recorded Assessments Includes: Assessments for all patient encounters No Assessments Recorded Medical Equipment - Implanted Devices Includes: Current and historical Devices No Medical Equipment Recorded Medications Includes: Current and historical Medications Current Medications (continue as prescribed) Famotidine 20 MG Oral Tablet 05/17/2024 Provider: Diagnosis: Last Documented On 5 3:09PM By Doug Blair ; [facility], [facility] Cephalexin 500 MG Oral Capsule 05/05/2024 Provider: Diagnosis: Last Documented On 5 3:09PM By Doug Blair ; [facility], [facility] Mupirocin 2% External Ointment 05/05/2024 Provider: Diagnosis: Last Documented On 5 3:09PM By Doug Blair ; [facility], [facility] Sulfamethoxazole-Trimethoprim 800-160 MG Oral Tablet 0 05/05/2024 Provider: Diagnosis: Last Documented On 5 3:09PM By Doug Blair ; [facility], [facility] Lidocaine 5% External Patch 04/03/2024 Provider: Diagnosis: Last Documented On 5 3:09PM By Doug Blair ; [facility], [facility] Methocarbamol 500 MG Oral Tablet 04/03/2024 Provider : Diagnosis: Last Documented On 5 3:09PM By Doug Blair ; [facility] Atorvastatin Calcium 10 MG Oral Tablet 03/28/2024 Pr ovider: Khanh Zimmer APRN Diagnosis: Last Documented On 5 3:09PM By Doug Blair ; [facility] Omeprazole 40 MG Oral Capsule Delayed Release 03/15/20 Provider: Diagnosis: Last Documented On 5 3:09PM By Doug Blair ; [facility] Medications Administered Includes: Administered Medications in patient's chart No Administered Medications Recorded Vital Signs Includes: Vital Signs from 08/10/2023 through 08/09/2024 Vital Name 05/23/2024 03:41P Height (in) 72 Weight (lb) 230 Body Mass Index 31.2 Body Surface Area 2.3 Pain Level 7 Last Documented: On 05/23/2024 3:41PM ; [facility] Results Includes: Results from 08/10/2023 through 08/09/2024 No Results Recorded For Specified Dates History of Present Illness History of Present Illness not supported for this document type No History of Present Illness Recorded Social History Description Last Updated No caffeine use 05/23/2024 Last Documented On 5 8:03AM ; [facility] No recent change in diet 05/23/2024 Last Documented On 5 8:03AM ; [facility] Not a current smoker. 05/23/2024 Last Documented On 5 8:03AM ; [facility] Not exercising regularly 05/23/2024 Last Documented On 5 8:03AM ; [facility] Not using alcohol 05/23/2024 Last Documented On 5 8:03AM ; [facility], [facility] Not using drugs 05/23/2024 Last Documented On 5 8:03AM ; [facility] Smoking Status Unknown Medical History Includes: Medical History in patient's chart No Medical History Recorded Family History Includes: Family History in patient's chart No Family History Recorded Review of Systems Review of Systems not supported for this document type No Review of Systems Recorded Mental Status No Mental Status Recorded Functional Status No Functional Status Recorded Physical Exam Physical Exam not supported for this document type No Physical Exam Recorded Encounters Includes: Encounters from 08/10/2023 through 08/09/2024 Encounter Provider Location Date Check-In Time Check-Out Time Diagnosis IN HOUSE REFERRAL Satya Saldaña PA-C [facility] 05/23/19 2:49PM 3:31PM Physician Specified Satya Heller PA-C [facility] 05/12/19 9:59AM 11:04AM Insurance Includes: Active Insurance Policies Plan Name Member ID Group # Subscriber Relationship Effect rae Dates 1 - [place] [employer] Plan [id number] Enoc Fam Self 04/26/2024 - Unknown Clinical Notes Includes: Signed Clinical Notes starting from 04/09/2022 * Progress note Date Encounter Last Documented by 05/23/2024 IN HOUSE REFERRAL Last documente d on 05/24/2024; 8:03 AM, Satya Saldaña PA-C; [facility], [facility] Active Problems & Conditions - Neck Pain Chief Complaint The Chief Complaint is: Neck pain. History of Present Illness Enoc Fam is a 48 year old male. - Symptoms pain better: not using much pain worse: using it, not taking Tylenol/ibuprofen. - Allergy list reviewed - Problem list reviewed - Medication list reviewed - Previous history of new onset pain Injury is not work related or an automotive accident. 09/30/21 injured RT arm when swinging sledgehammer - Sharp pain Symptoms - Stabbing - Pain is constant (100% of the time) - Pain is occasional (25% of the time) - Pain is throbbing - Pain is dull, aching - Patient pain level from 1-10: 8 - Yes, previous treatment. Satya Ervin Patient is here today with complaints of neck pain and pain with both arms at times. He has a previous history of having a right biceps tendon rupture that was nonoperative we will. He has been noticing he has been dropping things he notices that not pop up in his neck. He has had no treatment for this no balance issues. No other treatment for this Current Medication - Atorvastatin Calcium 10 MG Oral Tablet 90 days, 0 refills - Cephalexin 500 MG Oral Capsule 10 days, 0 refills - Famotidine 20 MG Oral Tablet 30 days, 0 refills - Lidocaine 5% External Patch 5 days, 0 refills - Methocarbamol 500 MG Oral Tablet 10 days, 0 refills - Mupirocin 2% External Ointment 7 days, 0 refills - Omeprazole 40 MG Oral Capsule Delayed Release 90 days, 0 refills - Sulfamethoxazole-Trimethoprim 800-160 MG Oral Tablet 10 days, 0 refills Social History Not a current smoker. Current diet: No recent change in diet. Caffeine use: No caffeine use. Alcohol: Not using alcohol. Drug Use: Not using drugs. Habits: Not exercising regularly. Physical Findings - Vitals taken 05/23/2024 03:41 pm Height 72 in Weight 230 lbs Body Mass Index 31.2 kg/m2 Body Surface Area 2.3 m2 Pain Level 7 Pleasant alert oriented x3 5/5 biceps triceps deltoids wrist extension and flexion strength and no long tract findings Tests Cervical spine MRIs show some disc bulging at C5-C6 and C6-C7 Assessment Cervical DDD C5-C6 C6-C7 disc bulge Previous Tests Available previous imaging studies were reviewed Available previous history reviewed Plan Patient was seen by myself Satya Saldaña PA-C. Patient will follow up 6 weeks we will start with some physical therapy with this told him he does not need any surgery for this. Notes This dictation was done with voice recognition software and may contain errors and omissions. Health Reminders - Assess BMI satisfied 05/23/2024.
--- OUTSIDE RECORDS SUMMARY | 2024-08-09 13:47 | XMS_ITS ---
Care Plan - [facility], [facility] Created on: August 09, 2024 Enoc Fam : 1975 Sex: Male Author Organization [facility] Address [address] [place] [phone] Phone Care Team Providers Care Customer Success Intern Name Role Phone Arcadio WASHBURN, Miguelito Wilson Unavailable [phone]
--- OUTSIDE RECORDS SUMMARY | 2024-08-09 13:47 | XMS_ITS | Clinical Summary ---
Author Organization [facility] Address [address] [place] [address] Phone Care Team Providers Care Agility Instructor Name Role Phone Arcadio WASHBURN, Miguelito Katie Unavailable [phone] Reason for Visit and Chief Complaint The Chief Complaint is: Neck pain Problems Includes: Problems addressed during this encounter and other active Problems Current Visit Onset Date Resolved Date Provider Annette montano Status Neck Pain 05/23/2024 Satya Saldaña PA-C Active Last Documented On 3:08PM ; [facility] Plan of Treatment Patient was seen by myself Satya Saldaña PA-C. Patient will follow up 6 weeks we will start with some physical therapy with this told him he does not need any surgery for this. - Last Documented On 05/24/2024 8:03AM ; [facility], [facility] Assessments Includes: Assessments from this encounter Findings Cervical DDD C5-C6 C6-C7 disc bulge - Last Documented On 05/24/2024 8:03AM ; [facility], [facility] Medical Equipment - Implanted Devices Includes: Current Devices No Medical Equipment Recorded Medications Includes: Medications discussed during this encounter and other current Medications Current Medications (continue as prescribed) Famotidine 20 MG Oral Tablet 05/17/2024 Provider: Diagnosis: Last Documented On 3:09PM By Doug Blair ; [facility] Cephalexin 500 MG Oral Capsule 05/05/2024 Provider: Diagnosis: Last Documented On 3:09PM By Doug Blair ; [facility], [facility] Mupirocin 2% External Ointment 05/05/2024 Provider: Diagnosis: Last Documented On 3:09PM By Doug Blair ; [facility], [facility] Sulfamethoxazole-Trimethoprim 800-160 MG Oral Tablet 0 05/05/2024 Provider: Diagnosis: Last Documented On 5 3:09PM By Doug Blair ; [facility], [facility] Lidocaine 5% External Patch 04/03/2024 Provider: Diagnosis: Last Documented On 5 3:09PM By Doug Blair ; [facility], [facility] Methocarbamol 500 MG Oral Tablet 04/03/2024 Provider : Diagnosis: Last Documented On 5 3:09PM By Doug Blair ; [facility], [facility] Atorvastatin Calcium 10 MG Oral Tablet 03/28/2024 Pr ovider: Khanh Zimmer APRN Diagnosis: Last Documented On 5 3:09PM By Doug Blair ; [facility], [facility] Omeprazole 40 MG Oral Capsule Delayed Release 03/15/20 Provider: Diagnosis: Last Documented On 5 3:09PM By Doug Blair ; [facility], [facility] Medications Administered Includes: Administered Medications from this encounter No Administered Medications Recorded Vital Signs Includes: Vital Signs from this encounter Vital Name 05/23/2024 03:41P Height (in) 72 Weight (lb) 230 Body Mass Index 31.2 Body Surface Area 2.3 Pain Level 7 Last Documented: On 05/23/2024 3:41PM ; [facility], [facility] Results Includes: Results discussed during this encounter [...] balance issues. No other treatment for this Social History Description Last Updated No caffeine use 05/23/2024 Last Documented On 5 8:03AM ; [facility], [facility] No recent change in diet 05/23/2024 Last Documented On 5 8:03AM ; [facility], [facility] Not a current smoker. 05/23/2024 Last Documented On 5 8:03AM ; [facility], [facility] Not exercising regularly 05/23/2024 Last Documented On 5 8:03AM ; [facility], [facility] Not using alcohol 05/23/2024 Last Documented On 5 8:03AM ; [facility], [facility] Not using drugs 05/23/2024 Last Documented On 5 8:03AM ; [facility], [facility] Smoking Status Unknown Medical History Includes: [...] Exam Includes: Physical Exam from this encounter Encounters Encounter Provider Location Date Check-In Time Check-Out Time Diagnosis IN HOUSE REFERRAL Satya Saldaña PA-C [facility] [place] 05/23/19 25 2:49PM 3:31PM Insurance Includes: Active Insurance Policies Plan Name Member ID Group # Subscriber Relationship Effect rae Dates 1 - [facility] Plan [id number] Enoc Fam Self 04/26/2024 - Unknown Clinical Notes Includes: Clinical Notes from this encounter * Progress note Date Encounter Last Documented by 05/23/2024 IN HOUSE REFERRAL Last documente d on 05/24/2024; 8:03 AM, Satya Saldaña PA-C; [facility], [facility] Active Problems & Conditions - Neck Pain [...] 1-10: 8 - Yes, previous treatment. Satya Arcadio Patient is here today with complaints of [...]
== END 2024-08-09 23:59 | disposition home or self-care (01) ==
LOC: RAD 13:45
PROVIDERS: PCP Family Medicine; Visit Provider Family Medicine
DX: M25.561 Pain in right knee (principal); M25.562 Pain in left knee; M25.361 Other instability, right knee; M25.362 Other instability, left knee; M54.9 Dorsalgia, unspecified
CPT/HCPCS: 72100; 73562

== ENCOUNTER 2024-08-21 14:05 | Outpatient (CLI) | payer OTHER, SELFPAY ==
--- NOTE | 2024-08-21 14:00 | MR_ITS ---
FINAL REPORT CLINICAL HISTORY: low back pain FINDINGS: Multiplanar MR imaging of the lumbar spine was performed without and with contrast. On the sagittal T2-weighted images, disc degeneration is seen at throughout the lumbar discs. The vertebral alignment is normal. There is no evidence of fracture. L1-2: No significant canal stenosis or neuroforaminal narrowing is seen. L2-3: No significant canal stenosis or neuroforaminal narrowing is seen. L3-4: No significant canal stenosis or neuroforaminal narrowing is seen. L4-5: There is a mild disc bulge and mild posterior lateral disc protrusion. There is mild left neuroforaminal narrowing. L5-S1:No significant canal stenosis or neuroforaminal narrowing is seen. No abnormal contrast enhancement is identified. IMPRESSION: Posterior lateral disc protrusion at L4-5 resulting in mild left neuroforaminal narrowing. No abnormal contrast-enhancement. Reviewed, Interpreted and Dictated by Tommy Faith MD Transcribed by Kirstie Macario Authenticated and [facility]
--- OUTSIDE RECORDS SUMMARY | 2024-08-21 14:08 | XMS_ITS | Data Portability ---
Author Organization [facility] and [facility] Address [address] [place] [address] Care Team Providers Care Core Dipper Name Role Phone OLIVA BLUM Front Office Clerk [phone] Assessment No assessment recorded. Plan of Treatment Reminders Order Date Submit Date Provider Last Modified By Organization Details Last Modified Time Details Appointments None recorded. Lab None recorded. Referral None recorded. Procedures upper endoscopy procedure (EGD) (PROC) 2023 024 bill Springer MD, [address] [place], [address], 4 10:36:49 colonoscop y procedure (PROC) 2023 024 bill Springer MD, [address] [place], [address], 4 10:36:49 upper endoscopy procedure (EGD) (PROC) 2023 024 bill Springer MD, [address] [place], [address], 4 10:36:49 upper endoscopy procedure (EGD) (PROC) 2022 023 syl Springer MD, [address] [place], [address], 3 13:52:55 colonoscop y procedure (PROC) 2022 023 syl Springer MD, [address], [address], [place], [address], 3 13:52:56 upper endoscopy procedure (EGD) (PROC) 2022 023 [email or web address] John Paul Springer MD, [address], [address], [place], [address], 3 13:52:55 Surgeries None recorded. Imaging None recorded. Medication Orders Miralax 17 gram/dose oral powder 2023 024 [id number], [address], [place], [place], [id number], 4 11:14:48 Dulcolax (bisacodyl ) 5 mg tablet,del ayed release 2023 024 [id number], [address], [place], [place], [id number], 4 11:14:48 pantoprazo le 40 mg tablet,del ayed release 2022 023 [email or web address] [id number], [address], [place], [place], [id number], 3 12:44:12 Patient TargetsNo targets recorded. Patient InstructionsNo instructions recorded. Reason for Referral None Reported. Results Created Date Observation Date Name Description Value Unit Range Abnormal Flag Note LastModifiedBy Organization Detail LastModifiedTime Result Notes None recorded. Problems Name Problem SNOMED Code Status Onset Date Resolution Date Notes Provider Name and Address Organization Details Recorded Time Esophageal dysphagia 20215323 Active 2022 Oliva Blum NP [address], [address], [place], [address], [facility] [place] 3 15:28:03 Gastro-esopha geal reflux disease with esophagitis 563046893 Active 2022 lOiva Blum NP [address], [address], [place], [address], [facility] [place] 3 15:28:03 Upper abdominal pain 14247441 Active 2022 Oliva Blum NP [address], [address], [place], [address], [facility] [place] 3 15:28:20 Problem Notes None recorded. Procedures Surgical History Date Name Laterality Status Provider Name and Address Organization Details Recorded Time 4 Colonoscopy completed Ana Paula Moralez [facility] & [place] 01/28/2024 10:24:51 Imaging Results None recorded. Procedure [...] Updated DateTime 3 180.34 cm 32.9 kg/m2 555785. 8 g 97 [degF] 98 % 98 % 76 /min Autumn Diaz [facility] & [place] 3 14:52:02 Date Recorded Body height Body mass index (BMI) Body weight Body temperature Oxygen saturation Oxygen saturation in Arterial blood by Pulse oximetry Heart rate Provider Name and Address Organization Details Last Updated DateTime 4 182.88 cm 31.3 kg/m2 717245. 84 g 97.4 [degF] 97 % 97 % 89 /min Pamela Rico [facility] [place] 4 09:52:41 Social History Question Answer Notes LastModified by Organizat ion Details LastModified Time Tobacco Smoking Status Current Every Day Smoker Autumn Diaz [facility] [place] [facility] [place] 03/31/2023 14:55:47 What Is Your Level Of Alcohol Consumption? None [email or web address] Information not available 03/31/2023 How Much Tobacco Do You Smoke? 1 PPD [email or web address] Information not available 03/31/2023 Do You Use Any Illicit Or Recreational Drugs? No [email or web address] Information not available 03/31/2023 Sex: Unknown Functional Status None recorded. Mental Status None recorded. Family History Relationship Description Onset Age of this Age Resolved Age Notes LastModified by Organization Details LastModified Time Father Hypertensive disorder [email or web address] Not available 03/31 14:53:25 Father Cerebrovascu lar accident Not available 14:55:21 Father Chronic obstructive pulmonary disease [email or web address] Not available 03/31 14:56:21 Mother Hypertensive disorder [email or web address] Not available 03/31 14:53:25 Mother Cerebrovascu lar accident [email or web address] Not available 14:55:21 Unspecified Relation Family history of Stomach cancer cousin tyler Not available 2022 15:09:17 Medical History Condition Response Anxiety Disorder Y GERD/Reflux Y Past Encounters Encounter ID Performer Location Encounter Start Date Encounter Closed Date Diagnosis/Indication Diagnosis SNOMED-CT Code Diagnosis ICD10 Code Diagnosis Note [id number] Oliva Blum NP [facility] [address] [place] [phone] 03/31/2023 14:37:45 04/01/2023 13:58:00 Esophageal dysphagia 49175132 R13.19 episodes of dysphagia of solids and liquids with regurgitat ion. Plan for EGD to evaluate for esophageal stricture, ring, esophagiti s, other.Pt is scheduled for EGD/Colon 04/07 @ 8:15 AM Gastro-eso phageal reflux disease with esophagitis 353714252 K21.00 Uncontroll ed symptoms with use of OTC omeprazole . Previously failed treatment with ranitidine . Recommend pantoprazo le 40 mg p.o. daily. Recommend smoking cessation as well as continued decrease caffeine intake. Recommend EGD to evaluate for esophagiti s, hiatal hernia, other. Family his tory of Stomach cancer [id number] Z80.0 Patient's cousin with history stomach cancer. Screening for malignant neoplasm of colon 954215853 Z12.11 Recommend screening colonoscop y to rule out colorectal cancer, polyps, other. Upper abdominal pain 831 [address]3701 R10.10 episodes of upper abdominal pain with some associated nausea. Comes and goes. Plan for EGD to evaluate for H pylori gastritis, PUD, other. [id number] Oliva Blum NP [facility] [address] [place] [phone] 11/03/2023 09:34:50 11/03/2023 12:27:41 Esophageal dysphagia 71837332 R13.19 episodes of dysphagia of solids and liquids with regurgitat ion. Plan for EGD to evaluate for esophageal stricture, ring, esophagiti s, other. Gastro-eso phageal reflux disease with esophagitis 787698663 K21.00 Frequent uncontroll ed symptoms currently treated with OTC tums. Failed treatment with Pantoprazo le and Omeprazole in the past. Recommend smoking cessation as well as decreased caffeine intake. Recommend EGD to evaluate for esophagiti s, hiatal hernia, other. Family his tory of Stomach cancer 197863396 Z80.0 Patient's cousin with history stomach cancer. Screening for malignant neoplasm of colon 768953656 Z12.11 Recommend screening colonoscop y to rule out colorectal cancer, polyps, other. No prior colonoscop y. Colonoscopy planned 0054 [address]341 Z76.89 Health Concerns Section Related Observation LastModified by Organization Detai ls LastModified Time None Recorded Concern Status LastModified by Organization Details LastModified Time None Recorded Advance Directives Directive None Recorded Payers Encounter Date Sequence Insurance Name Policy Number Policy Proctor Covered Member ID Proctor Member ID Guarantor Name 03/31/2023 1 [place] [place] [id number] [place] Fam [id number] En[place] Fam 11/03/2023 1 [place] [id number] Starkey [id number] [facility] Notes Date Note Type Note Provider Name [...] of gastric cancer. Oliva Blum NP [address], [address], [place], [address], [facility] [place] 03/31/2023 15:29:03 11/03/2023 text/html Patient returns to [...] of gastric cancer. Oliva Blum NP [address], [address], [address], [facility] [place] 11/03/2023 12:19:42
--- OUTSIDE RECORDS SUMMARY | 2024-08-21 14:08 | XMS_ITS | Clinical Summary ---
Author Organization [facility] Address [address] [place] [address] Phone Care Team Providers Care Tool Radial Drill Press Set Up Operator Name Role Phone Arcadio WASHBURN, Miguelito Katie Unavailable [phone] Reason for Visit and Chief Complaint The Chief Complaint is: Neck pain Problems Includes: Problems addressed during this encounter and other active Problems Current Visit Onset Date Resolved Date Provider Annette montano Status Neck Pain 05/23/2024 Satya Saldaña PA-C Active Last Documented On 3:08PM ; [facility] Plan of Treatment Patient was seen by myself Satya Saldaña PA-C. Patient will follow up 6 weeks we will start with some physical therapy with this told him he does not need any surgery for this. - Last Documented On 05/24/2024 8:03AM ; [facility], [facility] Assessments Includes: Assessments from this encounter Findings Cervical DDD C5-C6 C6-C7 disc bulge - Last Documented On 05/24/2024 8:03AM ; [facility], [facility] Medical Equipment - Implanted Devices Includes: Current Devices No Medical Equipment Recorded Medications Includes: Medications discussed during this encounter and other current Medications Current Medications (continue as prescribed) Famotidine 20 MG Oral Tablet 05/17/2024 Provider: Diagnosis: Last Documented On 3:09PM By Doug Blair ; [facility] Cephalexin 500 MG Oral Capsule 05/05/2024 Provider: Diagnosis: Last Documented On 3:09PM By Doug Blair ; [facility] Mupirocin 2% External Ointment 05/05/2024 Provider: Diagnosis: Last Documented On 3:09PM By Doug Blair ; [facility], [facility] Sulfamethoxazole-Trimethoprim 800-160 MG Oral Tablet 0 05/05/2024 Provider: Diagnosis: Last Documented On 5 3:09PM By Doug Blair ; [facility], [facility] Lidocaine 5% External Patch 04/03/2024 Provider: Diagnosis: Last Documented On 5 3:09PM By Doug Blair ; [facility], [facility] Methocarbamol 500 MG Oral Tablet 04/03/2024 Provider : Diagnosis: Last Documented On 5 3:09PM By Doug Blair ; [facility], [facility] Atorvastatin Calcium 10 MG Oral Tablet 03/28/2024 Pr ovider: Khanh Zimmer APRN Diagnosis: Last Documented On 5 3:09PM By Doug Blair ; [facility], [facility] Omeprazole 40 MG Oral Capsule Delayed Release 03/15/20 Provider: Diagnosis: Last Documented On 5 3:09PM By Doug Blair ; [facility], [facility] Medications Administered Includes: Administered Medications from this encounter No Administered Medications Recorded Vital Signs Includes: Vital Signs from this encounter Vital Name 05/23/2024 03:41P Height (in) 72 Weight (lb) 230 Body Mass Index 31.2 Body Surface Area 2.3 Pain Level 7 Last Documented: On 05/23/2024 3:41PM ; [facility], [facility] Results Includes: Results discussed during this encounter [...] 05/23/2024 Last Documented On 5 8:03AM ; [facility], [facility] No recent change in diet 05/23/2024 Last Documented On 5 8:03AM ; [facility], [facility] Not a current smoker. 05/23/2024 Last Documented On 5 8:03AM ; [facility], [facility] Not exercising regularly 05/23/2024 Last Documented On 5 8:03AM ; [facility], [facility] Not using alcohol 05/23/2024 Last Documented On 5 8:03AM ; [facility], [facility] Not using drugs 05/23/2024 Last Documented On 5 8:03AM ; [facility], [facility] Smoking Status Unknown Medical History Includes: Medical [...] Diagnosis IN HOUSE REFERRAL Satya Saldaña PA-C [facility]USL[facility] 05/23/19 25 2:49PM 3:31PM Insurance Includes: Active Insurance Policies Plan Name Member ID Group # Subscriber Relationship Effect rae Dates 1 - [facility] Plan [id number] Enoc Fam Self 04/26/2024 - Unknown Clinical Notes Includes: Clinical Notes from this encounter * Progress note Date Encounter Last Documented by 05/23/2024 IN HOUSE REFERRAL Last documente d on 05/24/2024; 8:03 AM, Satya Saldaña PA-C; [facility], [facility] Active Problems & Conditions - Neck Pain [...]
--- OUTSIDE RECORDS SUMMARY | 2024-08-21 14:08 | XMS_ITS | Clinical Summary ---
Author Organization [facility] Address [address] [place] [address] Phone Care Team Providers Care Marketing Consultant Name Role Phone Arcadio WASHBURN, Miguelito Wilson Unavailable [phone] Reason for Visit and Chief Complaint Physician Specified Problems Includes: Problems addressed during this encounter and other active Problems All Visits Onset Date Resolved Date Provider Condition S tatus Neck Pain 05/23/2024 Satya Saldaña PA-C Active Last Documented On 3:08PM ; [facility] Plan of Treatment No Plan of Treatment Recorded Assessments Includes: Assessments from this encounter No Assessments Recorded Medical Equipment - Implanted Devices Includes: Current Devices No Medical Equipment Recorded Medications Includes: Medications discussed during this encounter and other current Medications Current Medications (continue as prescribed) Famotidine 20 MG Oral Tablet 05/17/2024 Provider: Diagnosis: Last Documented On 5 3:09PM By Doug Blair ; [facility], [facility] Cephalexin 500 MG Oral Capsule 05/05/2024 Provider: Diagnosis: Last Documented On 5 3:09PM By Doug Blair ; [facility], [facility] Mupirocin 2% External Ointment 05/05/2024 Provider: Diagnosis: Last Documented On 5 3:09PM By Doug Blair ; [facility], [facility] Sulfamethoxazole-Trimethoprim 800-160 MG Oral Tablet 0 05/05/2024 Provider: Diagnosis: Last Documented On 5 3:09PM By Doug Blair ; [facility], [facility] Lidocaine 5% External Patch 04/03/2024 Provider: Diagnosis: Last Documented On 5 3:09PM By Doug Blair ; [facility], [facility] Methocarbamol 500 MG Oral Tablet 04/03/2024 Provider : Diagnosis: Last Documented On 5 3:09PM By Doug Wang [facility], [facility] Atorvastatin Calcium 10 MG Oral Tablet 03/28/2024 Pr ovider: Khanh Zimmer APRN Diagnosis: Last Documented On 5 3:09PM By Doug Blair ; [facility], [facility] Omeprazole 40 MG Oral Capsule Delayed Release 03/15/20 Provider: Diagnosis: Last Documented On 5 3:09PM By Doug Blair ; [facility], [facility] Medications Administered Includes: Administered Medications from [...] not palpate the distal biceps. Positive hand gas fitter bilaterally with the left being significantly stronger [...] Time Diagnosis Physician Specified Satya Heller PA-C [facility] 05/12/19 25 9:59AM 11:04AM Insurance Includes: Active Insurance Policies Plan Name Member ID Group # Subscriber Relationship Effect rae Dates 1 - [facility] Plan [id number] Enoc Fam Self 04/26/2024 - Unknown Clinical Notes Includes: Clinical Notes from this encounter * Progress note Date Encounter Last Documented by 05/12/2024 Physician Specified Last documen paulino on 08/21/2024; 8:51 AM, Satya Heller PA-C; [facility] Active Problems & Conditions - Neck Pain History of Present Illness Enoc Fam is [...] not palpate the distal biceps. Positive hand gas fitter bilaterally with the left being significantly stronger [...] up with us on an as-needed basis Current Medication - Atorvastatin Calcium 10 MG Oral Tablet 90 days, 0 refills - Cephalexin 500 MG Oral Capsule 10 days, 0 refills - Lidocaine 5% External Patch 5 days, 0 refills - Methocarbamol 500 MG Oral Tablet 10 days, 0 refills - Mupirocin 2% External Ointment 7 days, 0 refills - Omeprazole 40 MG Oral Capsule Delayed Release 90 days, 0 refills - Sulfamethoxazole-Trimethoprim 800-160 MG Oral Tablet 10 days, 0 refills Notes This dictation was done with voice recognition software and may contain errors and omissions.
--- OUTSIDE RECORDS SUMMARY | 2024-08-21 14:08 | XMS_ITS ---
Care Plan - [facility] Created on: August 21, 2024 Enoc Fam : 1975 Sex: Male Author Organization [facility] Address [address] [place] [address] Phone Care Team Providers Care Commissioned Sales Associate Name Role Phone Arcadio WASHBURN, Miguelito Wilson Unavailable [phone]
--- OUTSIDE RECORDS SUMMARY | 2024-08-21 14:08 | XMS_ITS ---
Author Organization [facility] Address [address] [place] [address] Phone Care Team Providers Care Group Therapist Name Role Phone Arcadio WASHBURN, Miguelito Wilson Unavailable [phone] Problems Includes: Active, inactive, and resolved Problems All Visits Onset Date Resolved Date Provider Condition S tatus Neck Pain 05/23/2024 Satya Saldaña PA-C Active Last Documented On 5 3:08PM ; [facility] Plan of Treatment No Plan of Treatment Recorded Assessments Includes: Assessments for all patient encounters No Assessments Recorded Medical Equipment - Implanted Devices Includes: Current and historical Devices No Medical Equipment Recorded Medications Includes: Current and historical Medications Current Medications (continue as prescribed) Famotidine 20 MG Oral Tablet 05/17/2024 Provider: Diagnosis: Last Documented On 5 3:09PM By Doug Blair ; [facility] Cephalexin 500 MG Oral Capsule 05/05/2024 Provider: Diagnosis: Last Documented On 5 3:09PM By Doug Blair ; [facility], [facility] Mupirocin 2% External Ointment 05/05/2024 Provider: Diagnosis: Last Documented On 5 3:09PM By Doug Blair ; [facility] Sulfamethoxazole-Trimethoprim 800-160 MG Oral Tablet 0 05/05/2024 Provider: Diagnosis: Last Documented On 5 3:09PM By Doug Blair ; [facility] Lidocaine 5% External Patch 04/03/2024 Provider: Diagnosis: Last Documented On 5 3:09PM By Doug Blair ; [facility] Methocarbamol 500 MG Oral Tablet 04/03/2024 Provider : Diagnosis: Last Documented On 5 3:09PM By Doug Blair ; [facility] Atorvastatin Calcium 10 MG Oral Tablet 03/28/2024 Pr ovider: Khanh Zimmer APRN Diagnosis: Last Documented On 5 3:09PM By Doug Blair ; [facility] Omeprazole 40 MG Oral Capsule Delayed Release 03/15/20 Provider: Diagnosis: Last Documented On 5 3:09PM By Doug Blair ; [facility] Medications Administered Includes: Administered Medications in patient's chart No Administered Medications Recorded Vital Signs Includes: Vital Signs from 08/22/2023 through 08/21/2024 Vital Name 05/23/2024 03:41P Height (in) 72 Weight (lb) 230 Body Mass Index 31.2 Body Surface Area 2.3 Pain Level 7 Last Documented: On 05/23/2024 3:41PM ; [facility] Results Includes: Results from 08/22/2023 through 08/21/2024 No Results Recorded For Specified Dates History of Present Illness History of Present Illness not supported for this document type No History of Present Illness Recorded Social History Description Last Updated No caffeine use 05/23/2024 Last Documented On 5 8:03AM ; [facility] No recent change in diet 05/23/2024 Last Documented On 5 8:03AM ; [facility] Not a current smoker. 05/23/2024 Last Documented On 5 8:03AM ; [facility] Not exercising regularly 05/23/2024 Last Documented On 5 8:03AM ; [facility] Not using alcohol 05/23/2024 Last Documented On 5 8:03AM ; [facility], [facility] Not using drugs 05/23/2024 Last Documented On 5 8:03AM ; [facility] Smoking Status Unknown Medical History Includes: [...] Physical Exam Recorded Encounters Includes: Encounters from 08/22/2023 through 08/21/2024 Encounter Provider Location Date Check-In Time Check-Out Time Diagnosis IN HOUSE REFERRAL Satya Saldaña PA-C [facility] 05/23/19 2:49PM 3:31PM Physician Specified Satya Heller PA-C [facility] 05/12/19 9:59AM 11:04AM Insurance Includes: Active Insurance Policies Plan Name Member ID Group # Subscriber Relationship Effect rae Dates 1 - [employer] Plan [id number] Enoc Fam Self 04/26/2024 - Unknown Clinical Notes Includes: Signed Clinical Notes starting from 04/09/2022 * Progress note Date Encounter Last Documented by 05/23/2024 IN HOUSE REFERRAL Last documente d on 05/24/2024; 8:03 AM, Satya Saldaña PA-C; [facility], [facility] Active Problems & Conditions - Neck [...] Health Reminders - Assess BMI satisfied 05/23/2024. * Progress note Date Encounter Last Documented by 05/12/2024 Physician Specified Last jai bob on 08/21/2024; 8:51 AM, Satya Heller PA-C; [facility], [facility] Active Problems & Conditions - Neck [...] not palpate the distal biceps. Positive hand supervisor steffen house bilaterally with the left being significantly stronger [...]
[2024-08-21] MEDS: GADOTERIDOL INJ 20ML SYRINGE 20 ML IV (15:13)
[2024-08-21] MEDS: SODIUM CHLORIDE 0.9% 10ML SYR (RAD ONLY) 10 ML IV (15:13)
== END 2024-08-21 23:59 | disposition home or self-care (01) ==
LOC: RAD 14:05
PROVIDERS: PCP Family Medicine; Visit Provider Family Medicine
DX: M54.50 Low back pain, unspecified (principal)
CPT/HCPCS: 72158; A9576

== ENCOUNTER 2024-09-01 15:06 | Outpatient (CLI) | payer OTHER, SELFPAY ==
--- OUTSIDE RECORDS SUMMARY | 2024-09-01 15:08 | XMS_ITS | Data Portability ---
Author Organization [facility] Address [address] [place] [address] Care Team Providers Care Senior Bi Architect Name Role Phone OLIVA BLUM Pilot [phone] Assessment No assessment recorded. Plan of Treatment Reminders Order Date Submit Date Provider Last Modified By Organization Details Last Modified Time Details Appointments None recorded. Lab None recorded. Referral None recorded. Procedures upper endoscopy procedure (EGD) (PROC) 2023 024 bill Springer MD, [address] [place], [address], 4 10:36:49 colonoscop y procedure (PROC) 2023 024 bill Springer MD, [address] [place], [address], 4 10:36:49 upper endoscopy procedure (EGD) (PROC) 2023 024 bill Springer MD, [address] [place], [address], 4 10:36:49 upper endoscopy procedure (EGD) (PROC) 2022 023 syl Springer MD, [address] [place], [address], 3 13:52:55 colonoscop y procedure (PROC) 2022 023 syl Springer MD, [address], [address], [place], [address], 3 13:52:56 upper endoscopy procedure (EGD) (PROC) 2022 023 [email or web address] John Paul Springer MD, [address], [address], [place], [address], 3 13:52:55 Surgeries None recorded. Imaging None recorded. Medication Orders Miralax 17 gram/dose oral powder 2023 024 [id number], [address], [place], [place], [id number], 4 11:14:48 Dulcolax (bisacodyl ) 5 mg tablet,del ayed release 2023 024 [email or web address] [email or web address], [address], [place], [place], [id number], 4 11:14:48 pantoprazo le 40 mg tablet,del ayed release 2022 023 [email or web address] [email or web address], [address], [place], [place], [id number], 3 12:44:12 Patient TargetsNo targets recorded. Patient InstructionsNo instructions recorded. Reason for Referral None Reported. Results Created Date Observation Date Name Description Value Unit Range Abnormal Flag Note LastModifiedBy Organization Detail LastModifiedTime Result Notes None recorded. Problems Name Problem SNOMED Code Status Onset Date Resolution Date Notes Provider Name and Address Organization Details Recorded Time Esophageal dysphagia 68169983 Active 2022 Oliva Blum NP [address], [address], [facility] [place], [address], [facility] & [place] 3 15:28:03 Gastro-esopha geal reflux disease with esophagitis 719936646 Active 2022 Oliva Blum NP [address], [address], [place], [address], [facility] & [place] 3 15:28:03 Upper abdominal pain 28354089 Active 2022 Oliva Blum NP [address], [address], [place], [address], [facility] & [place] 3 15:28:20 Problem Notes None recorded. Procedures Surgical History Date Name Laterality Status Provider Name and Address Organization Details Recorded Time 4 Colonoscopy completed Ana Paula Moralez [facility] & [place] 01/28/2024 10:24:51 Imaging Results None recorded. Procedure [...] Updated DateTime 3 180.34 cm 32.9 kg/m2 958521. 8 g 97 [degF] 98 % 98 % 76 /min Autumn Diaz [facility] & [place] 3 14:52:02 Date Recorded Body height Body mass index (BMI) Body weight Body temperature Oxygen saturation Oxygen saturation in Arterial blood by Pulse oximetry Heart rate Provider Name and Address Organization Details Last Updated DateTime 4 182.88 cm 31.3 kg/m2 494884. 84 g 97.4 [degF] 97 % 97 % 89 /min Pamela Rico [facility] & [place] 4 09:52:41 Social History Question Answer Notes LastModified by Organizat ion Details LastModified Time Tobacco Smoking Status Current Every Day Smoker Autumn Diaz [facility] & [place] 03/31/2023 14:55:47 What Is Your Level Of Alcohol Consumption? None Information not available 03/31/2023 How Much Tobacco Do You Smoke? 1 PPD [email or web address] Information not available 03/31/2023 Do You Use Any Illicit Or Recreational Drugs? No [email or web address] Information not available 03/31/2023 Sex: Unknown Functional Status None recorded. Mental Status None recorded. Family History Relationship Description Onset Age of this Age Resolved Age Notes LastModified by Organization Details LastModified Time Father Hypertensive disorder [email or web address] Not available 03/31 14:53:25 Father Cerebrovascu lar accident [email or web address] Not available 14:55:21 Father Chronic obstructive pulmonary disease [email or web address] Not available 03/31 14:56:21 Mother Hypertensive disorder Not available 03/31 14:53:25 Mother Cerebrovascu lar accident [email or web address] Not available 14:55:21 Unspecified Relation Family history of Stomach cancer cousin tyler Not available 2022 15:09:17 Medical History Condition Response Anxiety Disorder Y GERD/Reflux Y Past Encounters Encounter ID Performer Location Encounter Start Date Encounter Closed Date Diagnosis/Indication Diagnosis SNOMED-CT Code Diagnosis ICD10 Code Diagnosis Note [id number] Oliva Blum NP [facility] [address] [place] [phone] 03/31/2023 14:37:45 04/01/2023 13:58:00 Esophageal dysphagia 42677529 R13.19 episodes of dysphagia of solids and liquids with regurgitat ion. Plan for EGD to evaluate for esophageal stricture, ring, esophagiti s, other.Pt is scheduled for EGD/Colon 04/07 @ 8:15 AM Gastro-eso phageal reflux disease with esophagitis 201162287 K21.00 Uncontroll ed symptoms with use of OTC omeprazole . Previously failed treatment with ranitidine . Recommend pantoprazo le 40 mg p.o. daily. Recommend smoking cessation as well as continued decrease caffeine intake. Recommend EGD to evaluate for esophagiti s, hiatal hernia, other. Family his tory of Stomach cancer 861350909 Z80.0 Patient's cousin with history stomach cancer. Screening for malignant neoplasm of colon 760330630 Z12.11 Recommend screening colonoscop y to rule out colorectal cancer, polyps, other. Upper abdominal pain 831 [address]240 R10.10 episodes of upper abdominal pain with some associated nausea. Comes and goes. Plan for EGD to evaluate for H pylori gastritis, PUD, other. [id number] Oliva Blum NP [facility] [address] [place] [phone] 11/03/2023 09:34:50 11/03/2023 12:27:41 Esophageal dysphagia 43317003 R13.19 episodes of dysphagia of solids and liquids with regurgitat ion. Plan for EGD to evaluate for esophageal stricture, ring, esophagiti s, other. Gastro-eso phageal reflux disease with esophagitis 686760812 K21.00 Frequent uncontroll ed symptoms currently treated with OTC tums. Failed treatment with Pantoprazo le and Omeprazole in the past. Recommend smoking cessation as well as decreased caffeine intake. Recommend EGD to evaluate for esophagiti s, hiatal hernia, other. Family his tory of Stomach cancer 165277660 Z80.0 Patient's cousin with history stomach cancer. Screening for malignant neoplasm of colon 814527848 Z12.11 Recommend screening colonoscop y to rule out colorectal cancer, polyps, other. No prior colonoscop y. Colonoscopy planned 3853 67629 Z76.89 Health Concerns Section Related Observation LastModified by Organization Detai ls LastModified Time None Recorded Concern Status LastModified by Organization Details LastModified Time None Recorded Advance Directives Directive None Recorded Payers Insurance Date Sequence Insurance Name Policy Number Policy Proctor Covered Member ID Proctor Member ID Guarantor Name 02/13/2024 1 [employer]: AMRTIN MARC[place] - MEDICAID (HMO) [id number] Enoc Fam [id number] Enoc Fam Notes Date Note Type Note Provider Name [...] of gastric cancer. Oliva Blum NP [address] [facility], [address], [place], [address], [facility] 03/31/2023 15:29:03 11/03/2023 text/html Patient returns to [...] of gastric cancer. Oliva Blum NP [address] [facility], [address], [address], [facility] & [place] 11/03/2023 12:19:42
--- NOTE | 2024-09-01 15:30 | MR_ITS ---
FINAL REPORT CLINICAL HISTORY: LEFT KNEE PAIN , PAIN BELOW PATELLA , WEAKNESS IN KNEE AND KNEE WILL POP NO KNOW INJURY COMPARISON: None FINDINGS: Multi planar MR imaging was performed of the left knee. The anterior and posterior cruciate ligaments are intact. The quadriceps and patellar tendons are intact. The medial and lateral menisci are intact without evidence of tear. The medial and lateral collateral ligaments appear intact. The medial and lateral retinacula appear intact. There is a small osteochondral lesion involving the undersurface of the patella at the junction of the medial and lateral facets consistent with grade I-II chondromalacia. There is a degenerative cyst as well in the posterior medial tibial plateau, measuring 10 mm in diameter. No evidence of soft tissue inflammatory reaction. 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 Degenerative cyst is present in the posterior medial tibial plateau, 10 mm in diameter. Reviewed, Interpreted and Dictated by Tommy Faith MD Transcribed by Shanice Dsouza Authenticated and . [facility]
== END 2024-09-01 23:59 | disposition home or self-care (01) ==
LOC: RAD 15:06
PROVIDERS: PCP Family Medicine; Visit Provider Physician Assistant
DX: M85.662 Other cyst of bone, left lower leg (principal)
CPT/HCPCS: 73721

== ENCOUNTER 2024-09-21 16:03 | Outpatient (CLI) | payer OTHER, SELFPAY ==
[2024-09-21 16:10] LABS: Hexagonal Phase Phospholipid ND; PTT-LA Incub Mix ND; PTT-LA Mix ND
[2024-09-21 17:59] LABS: Basophils # 0.1 K/mm3 (0-0.2); Basophils % 0.3 % (0.1-2.0); Eosinophils # 0.1 Kmm3 (0.0-0.4); Eosinophils % 0.5 % (0.1-12.0); Hemoglobin 15.9 g/dL (14.1-18.0); Immature Granulocytes # 0.05 10^3uL; Immature Granulocytes % 0.3 %; Lymphocytes # 3.7 K/mm3 (0.7-4.5); Lymphocytes % 25.4 % (10-50); Mean Corpuscular HGB Conc 33.1 g/dL (31.8-35.4); Mean Corpuscular Hemoglobin 28.8 pg (27.0-31.2); Mean Corpuscular Volume 86.8 fl (80-94); Monocytes # 0.8 K/mm3 (0.1-1.0); Monocytes % 5.8 % (1.7-9.3); Neutrophils # 9.9 K/mm3 (1.8-7.8); Neutrophils % 67.7 % (37.0-80.0); Nucleated Red Blood Cells # 0 10^3/uL; Nucleated Red Blood Cells % 0 %; Platelet Count 211 K/mm3 (142-424); Red Blood Count 5.53 M/mm3 (4.60-6.20); Red Cell Distribution Width 11.6 % (11.5-17.5); White Blood Count 14.6 K/mm3 (4.8-10.8)
[2024-09-21 18:25] LABS: Erythrocyte Sedimentation Rate 1 mm/hr (0-15)
[2024-09-21 18:28] LABS: Albumin Level 4.8 g/dl (3.5-5.0); Chloride 99 mmol/L (98-107); Potassium 4.5 mmoL/L (3.5-5.1); Sodium 133 mmol/L (136-145)
[2024-09-21 18:30] LABS: Blood Urea Nitrogen 16 mg/dl (9-20); Estimated Glomerular Filt Rate 59 ml/min (>60); GFR (African American) 71 ML/MIN (>60)
[2024-09-21 18:31] LABS: Alanine Aminotransferase 30 U/L (12-78); Albumin/Globulin Ratio 1.6 (1.1-1.8); Alkaline Phosphatase 108 U/L (38-126); Anion Gap 11.5 mEq/L (5-15); Aspartate Amino Transferase 34 U/L (17-59); Bilirubin,Total 0.9 mg/dl (0.2-1.3); Calcium 9.8 mg/dl (8.4-10.2); Carbon Dioxide 27 mmol/L (22.0-30.0); Chol/HDL Ratio 3.5 (1-3.5); Cholesterol 94 mg/dl (140-200); Glucose 99 mg/dl (74-100); HDL Cholesterol 27 mg/dl (40-60); Total Protein,Serum 7.8 g/dl (6.3-8.2); Triglycerides 182 mg/dl (30-150); VLDL Cholesterol 36 mg/dL (0-40)
[2024-09-21 18:42] LABS: Direct LDL Cholesterol 34.93 mg/dL (100-129)
[2024-09-22 10:34] LABS: Magnesium 1.7 mg/dl (1.6-2.3)
[2024-09-23 05:35] LABS: RA Latex Turbid. 18.2 IU/mL (<14.0)
[2024-09-24 15:19] LABS: Lupus Reflex Interpretation Comment: (.); PTT-LA 42.9 sec (0.0-43.5); dRVVT 49.8 sec (0.0-47.0); dRVVT Confirm 1.3 ratio (0.8-1.2); dRVVT Mix 41.4 sec (0.0-40.4)
[2024-09-25 15:16] LABS: Anti-Centromere B Antibodies <0.2 AI (0.0-0.9); Anti-DNA (DS) Ab Qn 31 IU/mL (0-9); Anti-Jo-1 <0.2 AI (0.0-0.9); Anti-Smith Antibody <0.2 AI (0.0-0.9); Antichromatin Antibodies <0.2 AI (0.0-0.9); Antiscleroderma-70 Antibodies <0.2 AI (0.0-0.9); RNP Antibodies <0.2 AI (0.0-0.9); Sjogren's Anti-SS-A <0.2 AI (0.0-0.9); Sjogren's Anti-SS-B <0.2 AI (0.0-0.9)
[2024-09-25 15:16] LABS: Anti-DNA (DS) Ab Qn 32 IU/mL (0-9)
== END 2024-09-21 23:59 | disposition home or self-care (01) ==
LOC: LAB 16:04
PROVIDERS: PCP Family Medicine; Visit Provider Family Medicine
DX: Z00.00 Encounter for general adult medical examination without abnormal findings (principal); M25.50 Pain in unspecified joint
CPT/HCPCS: 36415; 80053; 80061; 83735; 85025; 85613; 85651; 85732; 86140; 86225; 86235; 86431

== ENCOUNTER 2024-10-03 10:09 | Outpatient (CLI) | payer OTHER, SELFPAY ==
--- NOTE | 2024-10-03 | CA_ITS ---
APPROVED REPORT Exam: Pharmacologic Technologist: Dolores Dawson Ht: 6 ft 0 in Wt: 232 lbs BSA: 2.27 m2 HR: 59 bpm BP: 158/98 mmHg Stress Test Details Test: Lexiscan HR Resting HR: 59 bpm Max Heart Rate (APMHR): 171.823466 bpm Max HR Achieved: 97 bpm Target HR (85% APMHR): 145.462703 bpm % of APMHR: 56.73 Recovery HR: 71 bpm BP Resting BP: 155.0/98.0 mmHg Max BP: 181.0/98.0 mmHg Recovery BP: 169.0/101.0 mmHg ECG Resting ECG: Sinus rhythm Stress ECG Conclusion Symptoms: Nausea, dyspnea, chest pressure Arrhythmias/Ectopy: PVC ST-T Changes: Less than [address] depression Conclusion: EKG unremarkable due to Lexiscan infusion. Electronically signed by : Lucille Perry MD 10/04/2024 13:05:17
--- NOTE | 2024-10-03 10:00 | CA_ITS ---
APPROVED REPORT EXAM: Comprehensive 2D, Doppler, and color-flow Echocardiogram Administration Intern: Yoko Hampton CRT Ht: 6 ft 0 in Wt: 232lbs BSA: 2.27 BP: 120/82 mmHg Indications: ANGINA B/S STUDY Echo Enhancing Agent Indication: Rule out Shunt Agent(s) / Amount(s) Used: Agitated Saline 5 cc Comments: B/S APPEARS NEGATIVE 2D Dimensions Left Atrium 4.46 cm LVEF (Khan's) 57.90 % RVID Base (AP4) 3.05 cm (M/F) 2.5-4.1 LV Volume 132.80 mL LVOT 1.89 cm (M/F) 1.5-2.5 LA Volume 75.10 mL LA Volume Index 33.10 mL/m2 (M/F) 16-34 EF AP4 53.90 % EF AP2 59.8 % EF BP 57.9 % GL Strain -16.1 % M-Mode Dimensions RVDd 2.85 cm (0.9-2.6) LVDd 3.86 cm (3.5-5.7) Ao Diam 4.26 cm (2.0-3.7) LVDs 2.77 cm (3.5-5.7) IVSd 1.69 cm (0.6-1.1) PWd 1.21 cm (0.6-1.1) EF (Teich) 55.20% FS 28.20% EDV (Teich) 64.30 mL TAPSE 3.07 (<1.7) ESV (Teich) 28.80 mL LV Diastology E Decel Time 219 (160-240 msec) E/A Ratio 1.21 MED E' 7.6 (>= 7 cm/sec) MED A' 14.40 cm/s E'/MED E' Ratio 15.39 (<= 14) LAT E' 6.6 (>= 10 cm/sec) LAT A' 13.00 cm/s E/LAT E' Ratio 17.73 (<= 14) Aortic Valve AoV Peak Juan Carlos. 162.0 (50-130 cm/s) AO Peak GR. 10.50 mmHg Mitral Valve MV E Max Juan Carlos. 117.0 (40-130 cm/s) MV A Velocity 97.0 (40-130 cm/s) E/A Ratio 1.21 MV Decel. Time 219 (160-240 ms) Tricuspid Valve TR P. Velocity 342.00 cm/s RAP Estimate 10.00 mmHg RVSP 56.90 mmHg Left Ventricle The left ventricle is normal size. The left ventricular systolic function is normal. The left ventricular ejection fraction is within the normal range. There is normal left ventricular wall thickness. There is normal LV segmental wall motion. The left ventricular diastolic function is normal. LVEF is 55%. Right Ventricle The right ventricle is normal size. The right ventricular systolic function is normal. Atria The left atrium size is normal. The right atrium size is normal. There is no Doppler evidence of interatrial shunt. Agitated saline administration demonstrates no evidence of interatrial shunt. Aortic Valve The aortic valve opens well. There is no aortic valvular stenosis. No aortic regurgitation is present. Mitral Valve The mitral valve is normal in structure. No evidence of mitral valve stenosis. Trace mitral regurgitation. Tricuspid Valve Tricuspid valve is grossly normal in structure and function. Mild tricuspid regurgitation. RVSP is 25-30 mmHg. Pulmonic Valve The pulmonary valve is normal in structure. Trace pulmonic regurgitation. Great Vessels The aortic root is normal in size. IVC is normal in size and collapses >50% with inspiration. Pericardium There is no pericardial effusion. Other Information Study Quality: Fair Conclusion Normal biventricular systolic function. No significant valvular stenosis or regurgitation. There is no Doppler evidence of interatrial shunt. Agitated saline administration demonstrates no evidence of interatrial shunt. Electronically signed by : Lucille Perry MD 10/13/2024 14:32:27
--- OUTSIDE RECORDS SUMMARY | 2024-10-03 10:12 | XMS_ITS | Encounter Summary ---
Author Organization [facility] Address [address] [id number] Care Team Providers Care Historian Research Assistant Name Role Phone Pcp, No Primary Care Provider UnavailCarolina BarrettW Unavailable Unavailable Encounter Details Date Type Department Care Team (Late st Contact Info) Description 04/02/2024 Patient Outreach [facility] Medicine Specialties [address] [place] [address] Rip Joiner Social History Tobacco Use Types Packs/Day Years Used Date Smoking Tobacco: Never Assessed Sex and Gender Information Value Date Recorded Sex Assigned at Not on file Legal Sex Male 5:41 PM EST Gender Identity Not on file Sexual Orientation Not on file documented as of this encounter Functional Status * Calculated C-SSRS Risk Score (Lifetime/Recent) Answer Date of Assessment Author No Risk Indicated 04/02/2024 6:06 PM Emily Maldonado RN * Question Answer Date of Assessment Author 1. Wish to be (Past 1 Month) No 024 6:06 PM Emily Maldonado RN 2. Non-Specific Active Suici brian Thoughts (Past 1 Month) No 04/02/2024 6:06 PM Emily Maldonado RN 6. Suicidal Behavior (Lifetime) No 6:06 PM Emily Maldonado RN documented as of this encounter Plan of Treatment Not on file documented as of this encounter Visit Diagnoses Not on filedocumented in this encounter Care Teams Historian Research Assistant Relationship Specialty Start Date End Date Pcp, No [address] [place] [address] PCP - General Family Medicine 04/02/24 Carolina Burks [employer] [place] [address] Gum Cook Labor And Delivery Registered Nurse 04/02/24 04/02/24 documented as of this encounter
--- OUTSIDE RECORDS SUMMARY | 2024-10-03 10:12 | XMS_ITS | Data Portability ---
Author Organization [facility] and [facility] Address [address] [place] [address] Care Team Providers Care Business Management Professor Name Role Phone OLIVA BLUM Parimutuel Cashier Assessment No assessment recorded. Plan of Treatment Reminders Order Date Submit Date Provider Last Modified By Organization Details Last Modified Time Details Appointments None recorded. Lab None recorded. Referral None recorded. Procedures upper endoscopy procedure (EGD) (PROC) 2023 024 bill Springer MD, [address] [place], [address], 4 10:36:49 colonoscop y procedure (PROC) 2023 024 bill Springer MD, [address] [place], [address], 4 10:36:49 upper endoscopy procedure (EGD) (PROC) 2023 024 bill Springer MD, [address] [place], [address], 4 10:36:49 upper endoscopy procedure (EGD) (PROC) 2022 023 syl Springer MD, [address] [place], [address], 3 13:52:55 colonoscop y procedure (PROC) 2022 023 syl Springer MD, [address], [address], [place], [address], 3 13:52:56 upper endoscopy procedure (EGD) (PROC) 2022 023 [email or web address] John Paul Springer MD, [address], [address], [place], [address], 3 13:52:55 Surgeries None recorded. Imaging None recorded. Medication Orders Miralax 17 gram/dose oral powder 2023 024 [id number], [address], [place], [place], [id number], 4 11:14:48 Dulcolax (bisacodyl ) 5 mg tablet,del ayed release 2023 024 [email or web address] [id number], [address], [place], [place], [id number], 4 11:14:48 pantoprazo le 40 mg tablet,del ayed release 2022 023 [facility] #[id number], [address], [place], [place], [id number], 3 12:44:12 Patient TargetsNo targets recorded. Patient InstructionsNo instructions recorded. Reason for Referral None Reported. Results Created Date Observation Date Name Description Value Unit Range Abnormal Flag Note LastModifiedBy Organization Detail LastModifiedTime Result Notes None recorded. Problems Name Problem SNOMED Code Status Onset Date Resolution Date Notes Provider Name and Address Organization Details Recorded Time Esophageal dysphagia 73174743 Active 2022 Oliva Blum NP [address], [address], [facility], [address], [facility] [place] 3 15:28:03 Gastro-esopha geal reflux disease with esophagitis 506793432 Active 2022 Oliva Blum NP [address], [address], [place], [address], [place] - [facility] & [place] 3 15:28:03 Upper abdominal pain 84168968 Active 2022 Oliva Blum NP [address], [address], [place], [address], [place] - [facility] & [place] 3 15:28:20 Problem Notes None recorded. Procedures Surgical History Date Name Laterality Status Provider Name and Address Organization Details Recorded Time 4 Colonoscopy completed Ana Paula Moralez [place] - [facility] & [place] 01/28/2024 10:24:51 Imaging Results None recorded. Procedure [...] Updated DateTime 4 182.88 cm 31.3 kg/m2 215557. 84 g 97.4 [degF] 97 % 97 % 89 /min Pamela Mouthcard [place] - [facility] [place] [facility] [place] 4 09:52:41 Date Recorded Body height Body mass index (BMI) Body weight Body temperature Oxygen saturation Oxygen saturation in Arterial blood by Pulse oximetry Heart rate Provider Name and Address Organization Details Last Updated DateTime 3 180.34 cm 32.9 kg/m2 454278. 8 g 97 [degF] 98 % 98 % 76 /min [facility] [place] 3 14:52:02 Social History Question Answer Notes LastModified by Organizat ion Details LastModified Time Tobacco Smoking Status Current Every Day Smoker Autumn wang, [facility] [place] 03/31/2023 14:55:47 How Much Tobacco Do You Smoke? 1 PPD [email or web address] Information not available 03/31/2023 Sex: Unknown Functional Status Question Answer Note LastModified by Organizat ion Details LastModified Time Do you use any illicit or recreational drugs? No [email or web address] Information not available 03/31/2023 What is your level of alcohol consumption? None [email or web address] Information not available 03/31/2023 Mental Status None recorded. Family History Relationship Description Onset Age of this Age Resolved Age Notes LastModified by Organization Details LastModified Time Father Hypertensive disorder [email or web address] Not available 03/31 14:53:25 Father Cerebrovascu lar accident Not available 14:55:21 Father Chronic obstructive pulmonary disease [email or web address] Not available 03/31 14:56:21 Mother Hypertensive disorder Not available 03/31 14:53:25 Mother Cerebrovascu lar accident [email or web address] Not available 14:55:21 Unspecified Relation Family history of Stomach cancer cousin tyler Not available 2022 15:09:17 Medical History Condition Response Anxiety Disorder Y GERD/Reflux Y Past Encounters Encounter ID Performer Location Encounter Start Date Encounter Closed Date Diagnosis/Indication Diagnosis SNOMED-CT Code Diagnosis ICD10 Code Diagnosis Note [id number] Oliva Blum NP [facility] [address] [address] 03/31/2023 14:37:45 04/01/2023 13:58:00 Esophageal dysphagia 09259434 R13.19 episodes of dysphagia of solids and liquids with regurgitat ion. Plan for EGD to evaluate for esophageal stricture, ring, esophagiti s, other.Pt is scheduled for EGD/Colon 04/07 @ 8:15 AM Gastro-eso phageal reflux disease with esophagitis 950212705 K21.00 Uncontroll ed symptoms with use of OTC omeprazole . Previously failed treatment with ranitidine . Recommend pantoprazo le 40 mg p.o. daily. Recommend smoking cessation as well as continued decrease caffeine intake. Recommend EGD to evaluate for esophagiti s, hiatal hernia, other. Family his tory of Stomach cancer 879717189 Z80.0 Patient's cousin with history stomach cancer. Screening for malignant neoplasm of colon 951497133 Z12.11 Recommend screening colonoscop y to rule out colorectal cancer, polyps, other. Upper abdominal pain 831 80500 R10.10 episodes of upper abdominal pain with some associated nausea. Comes and goes. Plan for EGD to evaluate for H pylori gastritis, PUD, other. [id number] Oliva Blum NP [facility] [address] [place] [address] 11/03/2023 09:34:50 11/03/2023 12:27:41 Esophageal dysphagia 81444882 R13.19 episodes of dysphagia of solids and liquids with regurgitat ion. Plan for EGD to evaluate for esophageal stricture, ring, esophagiti s, other. Gastro-eso phageal reflux disease with esophagitis 160918430 K21.00 Frequent uncontroll ed symptoms currently treated with OTC tums. Failed treatment with Pantoprazo le and Omeprazole in the past. Recommend smoking cessation as well as decreased caffeine intake. Recommend EGD to evaluate for esophagiti s, hiatal hernia, other. Family his tory of Stomach cancer 542654522 Z80.0 Patient's cousin with history stomach cancer. Screening for malignant neoplasm of colon 611278554 Z12.11 Recommend screening colonoscop y to rule out colorectal cancer, polyps, other. No prior colonoscop y. Colonoscopy planned 7010 14364 Z76.89 Health Concerns Section Related Observation LastModified by Organization Detai ls LastModified Time None Recorded Concern Status LastModified by Organization Details LastModified Time None Recorded Advance Directives Directive None Recorded Payers Insurance Date Sequence Insurance Name Policy Number Policy Proctor Covered Member ID Proctor Member ID Guarantor Name 02/13/2024 1 WHITNEY: MARTIN MARCUS OF [place] - MEDICAID (HMO) [id number] Enoc Fam [id number] Enoc Fam Notes Date Note Type [...] of gastric cancer. Oliva Blum NP [address], [address], [place], [address], [facility] 03/31/2023 15:29:03 11/03/2023 text/html Patient returns [...] of gastric cancer. Oliva Blum NP [address], [address], [address], [facility] 11/03/2023 12:19:42
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
--- NOTE | 2024-10-03 11:30 | NM_ITS ---
APPROVED REPORT Exam: Nuclear Stress Test Indication: SOB, HTN, High cholesterol, Tobacco use, Family history Patient Location: Outpatient Stress Tech: Dolores Dawson [place] Tech:Leatha Guy, ARRT, RT (R)(N) Ht: 6 ft 0 in Wt: 230 lbs HR: 59 bpm BP: 155/98 mmHg BSA: 2.26 m2 TID: 1.06 History: SOB, HTN, High cholesterol, Tobacco use, Family history Procedure: Patient received 0.4 mg of intravenous Lexiscan, resting heart rate 59 bpm, resting blood pressure 155/98 mmHg, with Lexiscan maximum heart rate achieved was 97 bpm which is % of the maximum predicted heart rate and blood pressure was 181/98 mmHg. With Lexiscan, patient denied any complaint of chest pain. Cardiac Stress and Resting SPECT Images: Cardiac Stress and Resting SPECT images were obtained using technetium 99m Myoview 31.1 mCi stress and 10.16 mCi at rest. Resting and stress imaging in supine and prone positions demonstrate a small sized, mild, predominantly reversible perfusion defect in the basal inferior and lateral LV miller. Gated imaging demonstrates normal global and regional LV systolic function. LVEF is calculated at 53%. Conclusion: Small sized, mild, predominantly reversible perfusion defect in the basal inferior and lateral LV miller. Findings are suggestive of partial reversible ischemia. Gated imaging demonstrates normal global and regional LV systolic function. LVEF is calculated at 53%. Electronically signed by : Lucille Perry MD 10/04/2024 12:51:35
[2024-10-03] MEDS: ISOTOPE MYOVIEW (PER STUDY) 1 DOSE IV (13:18)
[2024-10-03] MEDS: REGADENOSON 0.4MG/5ML SYRINGE 0.4 MG IV (13:18)
[2024-10-03] MEDS: SODIUM CHLORIDE 0.9% 10ML SYR (RAD ONLY) 10 ML IV ×2 (13:18)
== END 2024-10-03 23:59 | disposition home or self-care (01) ==
LOC: RT 10:10
PROVIDERS: PCP Family Medicine; Visit Provider Family Medicine
DX: I49.3 Ventricular premature depolarization (principal); I20.89 Other forms of angina pectoris; E78.00 Pure hypercholesterolemia, unspecified; I10 Essential (primary) hypertension; R94.39 Abnormal result of other cardiovascular function study; R06.81 Apnea, not elsewhere classified; R11.2 Nausea with vomiting, unspecified; R10.13 Epigastric pain; Z72.0 Tobacco use
CPT/HCPCS: 78452; 93017; 93018; 93306; A9502; J2785

== ENCOUNTER 2024-11-02 08:26 | Day surgery (SDC) | payer OTHER, SELFPAY ==
[2024-10-31 08:08] VITALS: BMI 31.3
[2024-11-02] VITALS (11 sets, daily range): BP systolic 110–193; BP diastolic 66–100; PULSE 54–71; RESP 18–20; TEMP 36.9; O2SAT 90–99; BMI 31.3
--- NOTE | 2024-11-02 07:09 | IR_ITS ---
APPROVED REPORT Patient Location: Outpatient PROCEDURES Left heart catheterization Left ventriculogram Selective coronary angiogram INDICATION Abnormal Myoview, Angina pectoris Informed consent was obtained prior to the procedure. COMPLICATIONS NONE Estimated Blood Loss: LESS THAN 10 ML TECHNIQUE One percent lidocaine used to anesthetize the right anterior aspect of the wrist. The right radial artery was accessed via the Seldinger technique. A 6 Divehi sheath was placed in the right radial artery. 2.5 mg of Verapamil, 800 mcg of nitroglycerin, 1mg Lidocaine and 5000 U Heparin were given through the arterial sheath. The JL3 catheter was also used to perform left heart catheterization, left ventriculogram and selective coronary angiogram. At the end of the procedure the sheath was removed good hemostasis was achieved using Traclet band, patient was transferred to the postop holding area in stable condition. ANGIOGRAPHIC RESULTS The left main artery Normal The left anterior descending artery Has proximal 10% stenosis with 30% stenosis at the junction of triangulated vessel. A small to medium sized first diagonal artery has ostial 30% stenosis. The LAD then gives rise to a very large second diagonal artery which has an ostial 30% stenosis. The pauma LAD then has a 30% stenosis just distal to the second diagonal artery takeoff. This area of disease is focal and trifurcating but is nonflow limiting The circumflex artery Nondominant yet still large with proximal 20 and 30% stenosis with a 30 to 40% stenosis in the proximal large first obtuse marginal artery The right coronary artery Large dominant with diffuse proximal mid vessel and distal 20% stenosis The LOVELL ventriculogram reveals Normal 60% The left ventricular end-diastolic pressure 25 mmHg IMPRESSION Mild to moderate nonflow limiting coronary disease as described above Normal ejection fraction Elevated LVEDP PLAN 1. Medical management 2. Evaluation for sleep apnea 3. Weight loss exercise 4. Aggressive risk factor modification Electronically signed by : Aydin Swift MD 11/02/2024 10:27:24
--- NOTE | 2024-11-02 08:30 | SUR.PREOP ---
Pt asked if he could see his SO real quick and we stated we were taking him back for his procedure right away and he said never mind then ill see her when I'm done. Notified SO of POC and update on procedure.
[2024-11-02 08:44] LABS: Hematocrit 47.3 % (42.0-52.0); Hemoglobin 15.6 g/dL (14.1-18.0); Immature Granulocytes % 0.3 %; Mean Corpuscular HGB Conc 33.0 g/dL (31.8-35.4); Mean Corpuscular Hemoglobin 30.3 pg (27.0-31.2); Mean Corpuscular Volume 91.8 fl (80-94); Nucleated Red Blood Cells % 0 %; Platelet Count 187 K/mm3 (142-424); Red Blood Count 5.15 M/mm3 (4.60-6.20); Red Cell Distribution Width-SD 42.5 fL; White Blood Count 11.9 K/mm3 (4.8-10.8)
[2024-11-02] MEDS: HEPARIN 1,000 UNITS/500ML NS (CATH LAB) 3000 UNIT IV (08:57)
[2024-11-02] MEDS: VERAPAMIL 2.5MG/ML 2ML VIAL 2.5 MG IV (08:58)
[2024-11-02] MEDS: NITROGLYCERIN 800MCG/8ML SYR (CATH LAB) 800 MCG IA (08:58)
[2024-11-02] MEDS: HEPARIN 1,000 UNITS/ML 10ML VIAL (CATH LAB) 5000 UNIT IV (08:59)
[2024-11-02] MEDS: FENTANYL 100MCG/2ML VIAL 50 MCG IV (09:00)
[2024-11-02] MEDS: LIDOCAINE 1% 10ML MDV 10 ML IJ (09:00)
[2024-11-02] MEDS: MIDAZOLAM HCL 1MG/ML 5ML VIAL 1 MG IV (09:00)
[2024-11-02] MEDS: 0.9 % SODIUM CHLORIDE 500 ML 25 ML IV (09:00)
[2024-11-02 09:08] LABS: Chloride 103 mmol/L (98-107); Potassium 4.5 mmoL/L (3.5-5.1); Sodium 139 mmol/L (136-145)
[2024-11-02 09:11] LABS: Anion Gap 13.5 mEq/L (5-15); Blood Urea Nitrogen 16 mg/dl (9-20); Calcium 9.3 mg/dl (8.4-10.2); Carbon Dioxide 27 mmol/L (22.0-30.0); Creatinine Clearance Estimated 147 mL/min (50-200); Creatinine,Serum 0.90 mg/dl (0.66-1.25); Estimated Glomerular Filt Rate 90 ml/min (>60); GFR (African American) 109 ML/MIN (>60); Glucose 97 mg/dl (74-100)
[2024-11-02] MEDS: IOPAMIDOL-370 (76%);100ML BOTTLE 50 ML IV (13:40)
== END 2024-11-02 12:31 | disposition home or self-care (01) ==
PROVIDERS: PCP Family Medicine; Visit Provider Internal Medicine
PROC: 4A023N7 Measurement of Cardiac Sampling and Pressure, Left Heart, Percutaneous Approach (ICD-10-PCS; CPT 93452; principal; 2024-11-02 10:00)
DX: I25.118 Atherosclerotic heart disease of native coronary artery with other forms of angina pectoris (principal); R93.1 Abnormal findings on diagnostic imaging of heart and coronary circulation; I10 Essential (primary) hypertension; E78.00 Pure hypercholesterolemia, unspecified; F17.200 Nicotine dependence, unspecified, uncomplicated; Z79.82 Long term (current) use of aspirin; Z79.899 Other long term (current) drug therapy; Z82.49 Family history of ischemic heart disease and other diseases of the circulatory system
CPT/HCPCS: 93458; 80048; 85025; 99152; C1725; C1760; C1769; J1200; J1644; J3010; J7040; Q9967

== ENCOUNTER 2024-11-16 10:29 | Day surgery (SDC) | payer OTHER, SELFPAY ==
[2024-11-14 13:55] VITALS: BMI 31.1
[2024-11-16] MEDS: LACTATED RINGERS 1000ML 1,000 ML 50 ML IV (10:41)
[2024-11-16 10:42] VITALS: BP 158/91; PULSE 79; RESP 18; TEMP 36.8; O2SAT 95
--- NOTE | 2024-11-16 10:44 | EXP.HP ---
History of Present Illness *Admission Date: 11/16/24 *Reason for visit:: GERD/heartburn/nausea, vomiting and dyspepsia *History of present illness: Mr. Fam is a 49-year-old gentleman who is here for diagnostic EGD secondary to heartburn, reflux, nausea, vomiting, epigastric discomfort and dyspepsia. He also has some dysphagia and food regurgitation.. The examination is deemed medically necessary for diagnostic EGD. The patient has been seen, interviewed and examined prior to the procedure by both myself and the anesthesia provider. [facility] Disclaimer: The information contained in this section may have been updated after the patient was seen, as this information can be updated by other users. Medical History History of left heart catheterization (LHC) Other forms of dyspnea Elevated left ventricular end-diastolic pressure (LVEDP) Coronary artery disease Abnormal nuclear cardiac imaging test Family history of early CAD Cutaneous abscess of left hand Elevated LDL cholesterol level Encounter for hepatitis C virus screening test for high risk patient Orchitis Epididymitis, left High cholesterol Hepatitis C Hip pain, bilateral Lower back pain High blood pressure Surgical History History of colonoscopy No history of previous surgery Family History Father Hypertension Alcoholism Heart attack Mother Hypertension Heart attack COPD (chronic obstructive pulmonary disease) Obesity Social History Smoking Status: Heavy tobacco smoker alcohol intake: former substance use type: denies use current occupational status: unemployed Travel in the last 8 weeks?: None marital status: single number of children: 4 Have you lived/traveled outside US in past 30 days?: No Contact w/someone who lives/traveled outside US past 30 days?: No Exposure to someone with infectious disease in past 14 days?: No Do you have a fever (greater than 100.4 F or 38 C)?: No Have you tested positive for COVID-19?: No Exposed to someone with COVID-19 in past 14 days?: No Do you have a sore throat?: No Do you have a cough?: No Do you have any weakness?: No Do you have any diarrhea?: No Are you experiencing any unusual bleeding?: No Do you have any muscle aches/pain?: No Do you have any abdominal pain?: No Are you experiencing loss of taste or smell?: No Other Medical History Have you received the Pneumonia Vaccine: No Review of Systems Review of Systems Review of systems (narrative): Negative *Cardiovascular Comments: Negative *Gastrointestinal Comments: Negative *Genitourinary Comments: Negative *Musculoskeletal Comments: Negative *Neurologic Comments: Negative Meds Home Medications and Allergies Home Medications ?Medication ?Instructions ?Recorded ?Confirmed ?Type cetirizine 10 mg tablet (Wal-Zyr 10 mg PO DAILY PRN allergy 12/14/23 11/14/24 Rx (cetirizine)) symptoms #30 tabs omeprazole 40 mg capsule,delayed 40 mg PO DAILY #90 caps 05/11/24 11/14/24 Rx release atorvastatin 10 mg tablet (Lipitor) 10 mg PO HS #90 tabs 07/13/24 11/14/24 Rx inclisiran 284 mg/1.5 mL 284 mg (1.5 mL) SQ [id number] 2 08/17/24 11/14/24 Rx subcutaneous syringe (Leqvio) doses #1.5 mL vonoprazan 20 mg tablet (Voquezna) 20 mg PO DAILY #30 tabs 09/21/24 11/14/24 Rx lisinopril 20 mg tablet 20 mg PO DAILY #90 tabs 09/22/24 11/14/24 Rx aspirin 81 mg tablet,delayed 81 mg PO DAILY #30 tabs 10/16/24 11/14/24 Rx release (Adult Low Dose Aspirin) acetaminophen 500 mg tablet See Rx Instructions .Route 11/07/24 11/14/24 Rx (Acetaminophen Extra Strength) .COMPLEX #90 tabs New Prescriptions to Start Prescriptions: Allergies Allergy/AdvReac Type Severity Reaction Status Date / Time No Known Allergies Allergy Verified 11/07/24 11:25 Exam Data for Last 24 hours I & O for Last 24 hours: Intake & Output 11/13/24 11/14/24 11/15/24 11/16/24 23:59 23:59 23:59 23:59 Weight 230 lb *Routine HEENT Exam Head: Present normocephalic Eye: Present EOMI and PERRL ENT: Present mucous membranes moist *Routine Neck Exam Neck: Present supple *Routine Respiratory Exam Respiratory: Present CTA bilaterally *Routine Cardiovascular Exam Cardiovascular: Present RRR *Routine Abdominal Exam Abdominal: Present soft and normoactive bowel sounds; Absent tenderness *Routine Rectal Exam Rectal:: deferred *Routine Genitalia Exam Genitalia:: deferred *Routine Extremities Exam Extremities: Absent cyanosis, clubbing or edema *Routine Skin Exam Skin: Present warm; Absent rash *Routine Neurological Exam Neurological: Present alert and oriented X3 Assessment and Plan *Assessment and plan (1) Heartburn: Status: Acute Category: Medical Code(s): R12 - Heartburn (2) GERD (gastroesophageal reflux disease): Status: Acute Category: Medical Code(s): K21.9 - Gastro-esophageal reflux disease without esophagitis (3) Nausea & vomiting: Status: Acute Category: Medical Code(s): R11.2 - Nausea with vomiting, unspecified (4) Epigastric pain: Status: Acute Category: Medical Code(s): R10.13 - Epigastric pain (5) Dysphagia: Status: Acute Category: Medical Code(s): R13.10 - Dysphagia, unspecified (6) Regurgitation of food: Status: Acute Category: Medical Code(s): R11.10 - Vomiting, unspecified (7) Bloating: Status: Acute Category: Medical Code(s): R14.0 - Abdominal distension (gaseous) Plan A/P: 1. Heartburn/GERD with nausea, vomiting, epigastric abdominal pain, bloating, dyspepsia, dysphagia and regurgitation of food is the preprocedural diagnosis. The patient will be anesthetized/sedated using MAC sedation. The patient has been seen and examined. Cardiac and lung assessment prior to the examination is stable. Proceed with planned diagnostic EGD.
--- NOTE | 2024-11-16 11:04 | EXP.ANES.CKL ---
[facility] Disclaimer: The information contained in this section may have been updated after the patient was seen, as this information can be updated by other users. Medical History History of left heart catheterization (LHC) Other forms of dyspnea Elevated left ventricular end-diastolic pressure (LVEDP) Coronary artery disease Abnormal nuclear cardiac imaging test Family history of early CAD Cutaneous abscess of left hand Elevated LDL cholesterol level Encounter for hepatitis C virus screening test for high risk patient Orchitis Epididymitis, left High cholesterol Hepatitis C Hip pain, bilateral Lower back pain High blood pressure Surgical History History of colonoscopy No history of previous surgery Family History Father Hypertension Alcoholism Heart attack Mother Hypertension Heart attack COPD (chronic obstructive pulmonary disease) Obesity Social History Smoking Status: Heavy tobacco smoker alcohol intake: former substance use type: denies use current occupational status: unemployed Travel in the last 8 weeks?: None marital status: single number of children: 4 Have you lived/traveled outside US in past 30 days?: No Contact w/someone who lives/traveled outside US past 30 days?: No Exposure to someone with infectious disease in past 14 days?: No Do you have a fever (greater than 100.4 F or 38 C)?: No Have you tested positive for COVID-19?: No Exposed to someone with COVID-19 in past 14 days?: No Do you have a sore throat?: No Do you have a cough?: No Do you have any weakness?: No Do you have any diarrhea?: No Are you experiencing any unusual bleeding?: No Do you have any muscle aches/pain?: No Do you have any abdominal pain?: No Are you experiencing loss of taste or smell?: No [facility] Anesthesia Checklist Patient Identification Patient Identification: Arm Band Structural Data Admitted From: Home Planned Operative Procedure/s: EGD Consent for Planned Operative Procedure(s) Verified: Yes Verified Documents: Surgical Consent and History and Physical NPO Status Verified Time NPO: 00:00 Additional verifications Anesthesia Reactions: No Airway Assessment Mallampati Score:: Class II C-Spine Mobility Assessed: Yes TMJ Mobility Assessed: Yes Dentition: Good Dentition Neurological Assessment Level of Consciousness: Awake, Alert and Appropriate Anesthesia Plan Anesthesia Risk discussed: Yes Anesthesia Plan: Verified ASA Class: III Anesthesia Type: MAC
--- NOTE | 2024-11-16 11:21 | P.PCN_ITS ---
[facility] Procedure Note Date: 11/16/24 Time: 11:34 Procedure Note:: Upper Endoscopy Procedure Report: Esophagogastroduodenoscopy with cold biopsies and TTS balloon dilation Endoscopost: Ian Farah II, MD Referring Physician: CURTIS Brown Date of Procedure: November 16, 2024 Equipment: Olympus GIF-1100 standard upper endoscope Sedation: MAC sedation Indications: Mr. Fam is a 49-year-old gentleman with GERD and dyspepsia. He reports epigastric abdominal pain and discomfort, nausea, vomiting, heartburn and reflux which can be severe. He reports bloating, belching, early satiety and some dysphagia. The patient has tried and failed [id number] antiacids, ranitidine, Tums, Pepcid, omeprazole, Rolaids and Nexium. He was placed on Voquezna and has had marked improvement since then. The patient did have panendoscopy in February 2024 (John Paul Springer MD [facility]). He reports that he did not have any follow-up information on this but he does think that he was dilated. He does have alternating bowel habits from constipation to diarrhea. He does have straining and incomplete bowel evacuation. He has been on ibuprofen. Labs on November 02, 2024 showed no anemia. His sed rate is normal at 1. He did have hepatic fibrotic markers showing no hepatic fibrosis. Procedure: Prior to the procedure, a history and physical exam was performed, and patient's medications and allergies were reviewed. The risks, benefits and alternatives of the sedation and procedure were discussed with the patient. All questions were answered and informed consent was obtained. The patient was brought to the procedure room. Patient identification and proposed procedure were verified by the physician and the nurse. The patient was placed in a left lateral decubitus position and the scope was passed under direct vision. Throughout the procedure, the patient's blood pressure, pulse, and oxygen saturations were monitored continuously. The upper GI endoscopy was accomplished without difficulty. The patient tolerated the procedure well. Findings: The scope was passed directly into the upper esophagus and advanced to the fourth portion of duodenum and proximal jejunum. Cold biopsies were taken from the second portion of duodenum for the disaccharidase assay. The proximal jejunum, post bulbar duodenum, ampulla and duodenal bulb were normal with normal mucosa and conniventes. The scope was withdrawn through a normal duodenal bulb and spastic pylorus into the stomach. There was bile reflux was mild linear reactive gastropathy and mild proximal chronic gastritis. Cold biopsies were taken from the incisura and lesser curvature for H. pylori. Upon retroflexion there was a small 2 cm hiatal hernia. The scope was then withdrawn into the esophagus. There was no evidence of reflux esophagitis or Valdes's. There was no corrugation, furrowing, strictures, rings or webs. There were strong tertiary contractions and evidence of moderate esophageal dysmotility. The entire esophagus was dilated to 60 Frisian/20 mm with a TTS hydrostatic balloon. The remainder of the esophageal mucosa was normal. Impression: 1. Nonerosive GERD with moderate esophageal dysmotility and small 2 cm hiatal hernia 2. Bile reflux with mild linear reactive gastropathy and mild chronic gastritis Plan: I will follow-up the biopsies and recommend that the patient continue Voquezna which has helped. We will discuss other treatment options for his dyspepsia and esophageal spasm. He also had notable pylorospasm. Most of his symptoms of reflux and dyspepsia are related to and driven by lower intestinal gas pressure gradients/high gas pressure buildup resulting in backflow of bile and peptic fluid from the duodenum into the stomach (duodenal reflux). This gas production (carbon dioxide, hydrogen, methane, etc.) from the lower intestinal tract is the byproduct of colonic bacterial fermentation. This colonic fermentation occurs when there is more carbohydrate (dietary starches, sugars and high residue plant fiber) substrate that does not get digested (in the middle or small intestine) or occurs when there is colonic fecal buildup and colonic bacterial overgrowth. This indeed leads to bloating and the gas pressure buildup with gas pressure gradients that do drive backflow and dyspepsia.
[2024-11-16 11:34] VITALS: BP 140/70; PULSE 64; RESP 18; TEMP 36.2; O2SAT 96
[2024-11-16 11:44] VITALS: BP 155/69; PULSE 59; RESP 18; O2SAT 98
[2024-11-16 11:54] VITALS: BP 169/65; PULSE 61; RESP 18; O2SAT 98
[2024-11-16 11:56] VITALS: BP 151/67; PULSE 60; RESP 16; O2SAT 99
== END 2024-11-16 11:57 | disposition home or self-care (01) ==
PROVIDERS: PCP Family Medicine; Visit Provider Internal Medicine Gastroenterology
PROC: 0DJ08ZZ Inspection of Upper Intestinal Tract, Via Natural or Artificial Opening Endoscopic (ICD-10-PCS; CPT 43239; principal; 2024-11-16 12:30)
DX: K21.9 Gastro-esophageal reflux disease without esophagitis (principal); K29.50 Unspecified chronic gastritis without bleeding; I25.10 Atherosclerotic heart disease of native coronary artery without angina pectoris; Z87.891 Personal history of nicotine dependence; Z79.899 Other long term (current) drug therapy; Z79.82 Long term (current) use of aspirin
CPT/HCPCS: 43239; 43249; 82657; C1726; J2003; J2704; J7120

== ENCOUNTER 2024-11-23 13:18 | Outpatient (POV) | payer OTHER, SELFPAY ==
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
--- NOTE | 2024-11-23 13:29 | EXP.PAIN.OV ---
HPI Data of Consult Patient: new to practice Consult date: 11/23/24 Requesting Physician: Ana Paula Ervin APRN Primary Care Provider: Jackie Nunes APRN Reason for consult: Low back pain, hip pain, upper thigh pain History of present illness: Mr. Fam is a 49 year old male who presents today as a new patient. He is a referral from Jackie romero office. Today he rates his pain a 10 out of 10. Patient does state that he has had chronic low back pain that has been going on for years however has significantly increased over the last 2 years. Patient denies any specific trauma or injury that initially started this pain. 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 He does describe it as an overall numbness tingling sensation that goes down into his hips and upper thighs. Patient does state that he has tried oral medication such as Tylenol along with heat and ice and topicals with minimal changes. Patient did see chiropractor therapy in the past but made his symptoms worse. Patient denies any prior surgery. He does state that he has gotten injections in the past specifically from a provider out of [place] where they did not do sacroiliac joint injections and they made a world of a difference. Patient states that that provider ended up getting in trouble for something in the office closed. Patient denies any other back injections however does state that he has recently gotten some knee injections.He is not on any scheduled medications. His Jomar has been reviewed and is appropriate. Pain at rest (0-10 scale): 10 Has patient had previous pain injection?: No Conservative treatment options previously tried: Home exercise plan (Longer than 12 weeks) cc:: CC: Ana Paula Ervin APRN [facility] Disclaimer: The information contained in this section may have been updated after the patient was seen, as this information can be updated by other users. Medical History (Updated 11/23/24 @ 13:46 by Ana Paula Ervin APRN) History of left heart catheterization (LHC) Other forms of dyspnea Elevated left ventricular end-diastolic pressure (LVEDP) Coronary artery disease Abnormal nuclear cardiac imaging test Family history of early CAD Cutaneous abscess of left hand Elevated LDL cholesterol level Encounter for hepatitis C virus screening test for high risk patient Orchitis Epididymitis, left High cholesterol Hepatitis C Hip pain, bilateral Lower back pain High blood pressure Surgical History History of colonoscopy No history of previous surgery Family History Father Hypertension Alcoholism Heart attack Mother Hypertension Heart attack COPD (chronic obstructive pulmonary disease) Obesity Social History Smoking Status: Heavy tobacco smoker alcohol intake: former substance use type: denies use current occupational status: unemployed Travel in the last 8 weeks?: None marital status: single number of children: 4 Review of Systems Review of Systems Review of systems:: pertinent systems reviewed and negative unless documented below Review of systems (narrative): Review of Systems: General: No recent weight changes, no fever, no sleep disturbances Respiratory: No cough, no shortness of air, no recurring pulmonary infections Cardiovascular/peripheral vascular: No chest pain, no palpitations, no edema, no shortness of breath Gastrointestinal: No new onset incontinence, normal bowel movements reported Genitourinary: No new onset incontinence Musculoskeletal: Low back pain, hip pain, upper thigh pain Psychiatric: [Normal mood/affect] Neurological: [Denies weakness in extremities], [denies balance issues] Meds Home Medications and Allergies Home Medications ?Medication ?Instructions ?Recorded ?Confirmed ?Type cetirizine 10 mg tablet (Wal-Zyr 10 mg PO DAILY PRN allergy 12/14/23 11/14/24 Rx (cetirizine)) symptoms #30 tabs omeprazole 40 mg capsule,delayed 40 mg PO DAILY #90 caps 05/11/24 11/14/24 Rx release atorvastatin 10 mg tablet (Lipitor) 10 mg PO HS #90 tabs 07/13/24 11/14/24 Rx inclisiran 284 mg/1.5 mL 284 mg (1.5 mL) SQ [id number] 2 08/17/24 11/14/24 Rx subcutaneous syringe (Leqvio) doses #1.5 mL vonoprazan 20 mg tablet (Voquezna) 20 mg PO DAILY #30 tabs 09/21/24 11/14/24 Rx lisinopril 20 mg tablet 20 mg PO DAILY #90 tabs 09/22/24 11/14/24 Rx aspirin 81 mg tablet,delayed 81 mg PO DAILY #30 tabs 10/16/24 11/14/24 Rx release (Adult Low Dose Aspirin) acetaminophen 500 mg tablet See Rx Instructions .Route 11/07/24 11/14/24 Rx (Acetaminophen Extra Strength) .COMPLEX #90 tabs buspirone 10 mg tablet 10 mg PO BID #60 tabs 11/16/24 Rx New Prescriptions to Start Prescriptions: Allergies Allergy/AdvReac Type Severity Reaction Status Date / Time No Known Allergies Allergy Verified 11/07/24 11:25 Objective Narrative: Physical Exam: General: Alert and oriented x3, no acute distress, pleasant and cooperative Lungs: Respirations even and unlabored, symmetrical chest expansion Eyes: PERRL Musculoskeletal: Flexion and extension of lumbar [spine] somewhat guarded secondary to pain, [antalgic gait noted] point tenderness along bilateral SIs with positive bilateral Mercedez's, Alysia's, Gaenslen's, compression and distraction exam Neurological: Speech clear, no gross sensory deficit Additional findings Additional findings: FINDINGS: Multiplanar MR imaging of the lumbar spine was performed without and with contrast. On the sagittal T2-weighted images, disc degeneration is seen at throughout the lumbar discs. The vertebral alignment is normal. There is no evidence of fracture. L1-2: No significant canal stenosis or neuroforaminal narrowing is seen. L2-3: No significant canal stenosis or neuroforaminal narrowing is seen. L3-4: No significant canal stenosis or neuroforaminal narrowing is seen. L4-5: There is a mild disc bulge and mild posterior lateral disc protrusion. There is mild left neuroforaminal narrowing. L5-S1:No significant canal stenosis or neuroforaminal narrowing is seen. No abnormal contrast enhancement is identified. IMPRESSION: Posterior lateral disc protrusion at L4-5 resulting in mild left neuroforaminal narrowing. No abnormal contrast-enhancement. Reviewed, Interpreted and Dictated by Tommy Faith MD Transcribed by Kirstie Macario Authenticated and [facility] Assessment and Plan *Assessment and plan (1) Bilateral sacroiliitis: Status: Acute Category: Medical Code(s): M46.1 - Sacroiliitis, not elsewhere classified Plan Patient is experiencing worsening pain along the low back and bilateral hips. They did have limited range of motion of the lumbar spine along with point tenderness along bilateral SI joints and a positive bilateral Mercedez's, Alysia's, Gaenslen's, compression and distraction exam. Patient did have more extreme point tenderness along the left side versus the right. I did discuss with the patient that I do believe they would benefit from bilateral SI injections. Risk and benefits were discussed with the patient and they would like to proceed forward with this option. Patient has tried and failed conservative therapy. Patient has been actively doing conservative treatment including oral medication, heat and ice, topicals, at home exercising and stretching for longer than 12 weeks. Patient is having to adjust their activity based off the increased pain resulting in activity modification. I do believe the patient would benefit from SI injection. If the patient does get significant relief following these injections we will see in the future if they would benefit from a second set with the possibility of SI fusion at a later date. This will be a therapeutic as the patient has had chronic sacroiliitis in the past and has gotten significant relief with previous SI injections. This injection with less than 1.5 mL solution to be injected. Patient will be scheduled for bilateral SI injections under fluoroscopy. I will also order the patient a compounded cream. We will also give physician guided low back pain exercises to be done at home. Patient has been instructed to contact the clinic with any concerns before the next appointment. Dr. Belcher has reviewed this note and agrees with this plan of care. This note was dictated using voice recognition software and make contain errors or omissions. All injections are used with Lidocaine or Bupivacaine and dexamethasone unless diagnostic in which no steroids were injected.
[2024-11-23 13:35] VITALS: BP 143/89; PULSE 69; RESP 18; O2SAT 97; BMI 31.1
== END 2024-11-23 23:59 | disposition home or self-care (01) ==
PROVIDERS: PCP Family Medicine; Visit Provider Nurse Practitioner Family
DX: M46.1 Sacroiliitis, not elsewhere classified (principal)
CPT/HCPCS: 99202; G0463

== ENCOUNTER 2025-01-02 10:04 | Day surgery (SDC) | payer OTHER, SELFPAY ==
[2025-01-02 10:22] VITALS: BP 145/91; PULSE 67; RESP 16; O2SAT 96; BMI 31.1
[2025-01-02] MEDS: DEXAMETHASONE 10MG/ML 1ML VIAL 10 MG (10:24)
[2025-01-02] MEDS: BUPIVACAINE 0.25% 10ML INJ 25 MG IJ (10:24)
[2025-01-02] MEDS: LIDOCAINE 1% 5ML PF VIAL 5 ML (10:24)
[2025-01-02 10:25] VITALS: BP 143/73; PULSE 60; RESP 18; O2SAT 97
[2025-01-02 10:27] VITALS: BP 143/73; PULSE 60; RESP 18; O2SAT 98
--- NOTE | 2025-01-02 10:27 | P.PCN_ITS ---
Procedure Date: 01/02/25 Time: 10:15 Anesthesiologist:: Julio Espinal CRNA Complications:: None Pre-procedure Diagnosis:: Bilateral sacroiliitis Post-procedure Diagnosis:: Same Indications for Procedure:: Is a pleasant 49-year-old male who comes our clinic today for bilateral sacroili ac joint injection of cortisone and local anesthetic. Patient describes low lumbar back pain off the midline bilaterally. Difficulty transitioning from sitting to standing. Difficulty with ambulation. He rates his pain 7/10. Procedure Details:: Procedure: Bilateral sacroiliac joint injections under fluoroscopy Informed consent was obtained and the risks and benefits of the procedure were explained to the patient.~ The patient was taken to the procedure room and noninvasive monitors were placed including a noninvasive blood pressure cuff and pulse oximeter.~ The patient was placed prone on the procedure table. Both hips were cleansed using Betadine as a cleansing solution. C-arm fluoroscopy was used to view the right sacroiliac joint.~ The skin and subcutaneous tissues were anesthetized using lidocaine 1.5% and a 25-gauge needle.~ After this, a 22-gauge spinal needle was inserted under fluoroscopic guidance into the inferior aspect of the right sacroiliac joint.~ Omnipaque dye was injected and good spread was seen throughout the joint.~ After this, approximately 5 mL of bupivacaine, 0.25% and dexamethasone 5 mg was incrementally injected into the right sacroiliac joint. We then moved to the left sacroiliac joint.~ The skin and subcutaneous tissues were anesthetized using lidocaine 1.5% and a 25-gauge needle.~ After this, a 22- gauge spinal needle was inserted under fluoroscopic guidance into the inferior aspect of the left sacroiliac joint.~ Omnipaque dye was injected and good spread was seen throughout the joint. After this, approximately 5 mL of bupivacaine, 0.25% and dexamethasone 5 mg was incrementally injected into the left sacroiliac joint.~ The patient tolerated the procedure well with no complications. The patient was observed in the Pain Clinic and then was discharged home neurologically intact. Plan and Disposition:: Patient was discharged without incident.
[2025-01-02 10:50] VITALS: BP 133/74; PULSE 86; RESP 18; O2SAT 99
== END 2025-01-02 10:50 | disposition home or self-care (01) ==
PROVIDERS: PCP Family Medicine; Visit Provider Nurse Anesthetist, Certified Registered
DX: M46.1 Sacroiliitis, not elsewhere classified (principal); I25.10 Atherosclerotic heart disease of native coronary artery without angina pectoris; I11.9 Hypertensive heart disease without heart failure; E78.00 Pure hypercholesterolemia, unspecified; F17.200 Nicotine dependence, unspecified, uncomplicated; Z79.82 Long term (current) use of aspirin; Z79.899 Other long term (current) drug therapy
CPT/HCPCS: 27096; 64450; J0665; J1100; J2003